=== PATIENT | male | born 1960 | race Caucasian/White ===

== ENCOUNTER 2017-03-22 22:10 | Observation (INO) | payer MEDICARE, OTHER ==
[~2017-03-22] VITALS: Ht 180.3 cm; Wt 82.5 kg
[~2017-03-22 22:10] MED LIST: AMIO200 PO; ATOR20TA42 PO; CLOP75 PO; ECOT81TA2 PO; FURO1TAB93 PO; HYDR-3533 PO; METO50TA PO; POTA20IN3 PO; RAMI2.5C29 PO; SPIR25 PO
[2017-03-22 22:18] VITALS: BP 105/63; PULSE 83; RESP 18; TEMP 98.2; O2SAT 97
[2017-03-22] MEDS ORDERED: SODIUM CHLOR 0.9% 1000 ML INJ 1,000 ML IV ONE ×2 (22:34→23:04)
[2017-03-22] MEDS ORDERED: SODIUM CHLORIDE 0.9% FLUSH 10 ML FLUSH IVF PRN (22:45)
[2017-03-22] MEDS ORDERED: SPIR25TA PO (22:47)
[2017-03-22] MEDS ORDERED: METO50TA PO (22:47)
[2017-03-22] MEDS ORDERED: RAMI2.5C PO (22:47)
[2017-03-22] MEDS ORDERED: AMIO200T PO (22:47)
[2017-03-22] MEDS ORDERED: PLAV75TA29 PO (22:56)
[2017-03-22] MEDS ORDERED: ALPR.25 PO ×2 (22:56)
[2017-03-22] MEDS ORDERED: ATOR20TA15 PO (22:57)
--- NOTE | 2017-03-22 22:57 | PD ---
HPI Chief Complaint: Diabetic Time Seen by Provider: 22:34 Travel History International Travel<30 days: No Contact w/Intl Traveler<30days: No Traveled to known affect area: No History of Present Illness HPI Patient 56-year-old male with a history of congestive heart failure unknown primary cause presents emergency department for evaluation of hyperglycemia. He is coming by his friend whom he told that he been having some numbness and tingling in his fingers as well as some weight loss over the past few months and some nondescript visual disturbances. On a hot and she took his blood sugar with her machine at home and had 2 readings in excess of 400. On arrival here his blood sugars in the 480s, he last ate approximately 2 hours prior to arrival. Denies any chest pain shortness breath abdominal pain nausea vomiting or diarrhea. States she is on Lasix was not noticed if he is pain more often. He has an appointment coming up with his primary care physician and had labs ordered. States she has no history of diabetes personally. PFSH Past Medical History Hx Anticoagulant Therapy: Yes (63) Arthritis: Yes Asthma: No Autoimmune Disease: No Blood Disorders: No Anxiety: Yes Depression: No Heart Rhythm Problems: Yes Cancer: No Cardiac Catheterization: Yes (X 3) Cardiovascular Problems: Yes (CHF STENTS) High Cholesterol: Yes Chemotherapy: No Chest Pain: Yes Congestive Heart Failure: Yes COPD: Yes Cerebrovascular Accident: No Diabetes: Yes (NOT DXD) Diminished Hearing: No Endocrine: No GERD: Yes Genitourinary: Yes Hiatal Hernia: No Hypertension: Yes Immune Disorder: No Kidney Stones: No Musculoskeletal: Yes Neurologic: No Psychiatric: No Reproductive: No Respiratory: Yes Immunizations Current: Yes Migraines: No Myocardial Infarction: Yes Radiation Therapy: No Renal Failure: No Seizures: No Sickle Cell Disease: No Sleep Apnea: Yes Thyroid Disease: No Ulcer: No PNEUMOCCOCAL Vaccine (Year): 2008 Past Surgical History Abdominal Surgery: Yes AICD: Yes Appendectomy: Yes Cardiac Surgery: Yes (DEFIB-[facility] JANUARY 2016) Ear Surgery: No Endocrine Surgery: No Eye Surgery: No Genitourinary Surgery: No Gynecologic Surgery: No Insulin Pump: No Joint Replacement: No Oral Surgery: Yes (SINUS SURGERY) Pacemaker: No Thoracic Surgery: No Other Surgery: Yes Social History Alcohol Use: No Tobacco Use: Yes (10/07 PPD) Substance Use: No Allergies-Medications (Allergen,Severity, Reaction): Coded Allergies: Morphine (Verified Adverse Reaction, Unknown, HEADRUSH, 03/22/17) Reported Meds & Prescriptions Reported Meds & Active Scripts Active Reported Atorvastatin (Atorvastatin Calcium) 20 Mg Tab 20 Mg PO HS Xanax (Alprazolam) 0.25 Mg Tab 0.25 Mg PO HS Plavix (Clopidogrel Bisulfate) 75 Mg Tab 75 Mg PO DAILY Metoprolol Tartrate 50 Mg Tab 50 Mg PO BID Spironolactone 25 Mg Tab 25 Mg PO DAILY Ramipril 2.5 Mg Cap 2.5 Mg PO DAILY Amiodarone (Amiodarone HCl) 200 Mg Tab 200 Mg PO DAILY Review of Systems Except as stated in HPI: all other systems reviewed are Neg Physical Exam Narrative GENERAL: Well-developed, well-nourished, no apparent distress, quite pleasant. Does exhibit an occasional dry cough. SKIN: Focused skin assessment warm/dry. HEAD: Atraumatic. Normocephalic. EYES: Pupils equal and round. No scleral icterus. No injection or drainage. ENT: No nasal bleeding or discharge. Mucous membranes pink and moist. NECK: Trachea midline. No JVD. CARDIOVASCULAR: Regular rate and rhythm. No murmur appreciated. RESPIRATORY: No accessory muscle use. Clear to auscultation. Breath sounds equal bilaterally. GASTROINTESTINAL: Abdomen soft, non-tender, nondistended. Hepatic and splenic margins not palpable. MUSCULOSKELETAL: No obvious deformities. No clubbing. No cyanosis. No edema. NEUROLOGICAL: Awake and alert. No obvious cranial nerve deficits. Motor grossly within normal limits. Normal speech. PSYCHIATRIC: Appropriate mood and affect; insight and judgment normal. Data Data Last Documented VS Vital Signs Date Time Temp Pulse Resp B/P Pulse Ox O2 Delivery O2 Flow Rate FiO2 03/22/17 23:30 79 18 110/68 100 Room Air 03/22/17 22:18 98.2 Orders Electrocardiogram (03/22/17 22:34) Complete Blood Count With Diff (03/22/17 22:34) Comprehensive Metabolic Panel (03/22/17 22:34) Beta Hydroxybutyrate (Acetone) (03/22/17 22:34) Urinalysis - C+S If Indicated (03/22/17 22:34) Ecg Monitoring (03/22/17 22:34) Iv Access Insert/Monitor (03/22/17 22:34) Oximetry (03/22/17 22:34) NPO (03/22/17 22:34) Sodium Chlor 0.9% 1000 Ml Inj (Ns 1000 M (03/22/17 22:34) Sodium Chlor 0.9% 1000 Ml Inj (Ns 1000 M (03/22/17 23:04) Sodium Chloride 0.9% Flush (Ns Flush) (03/22/17 22:45) Troponin I (03/22/17 22:34) Insulin Human Regular Inj (Novolin R Inj (03/22/17 23:15) Chest, Single Ap (03/22/17 ) Labs Laboratory Tests Test 03/22/17 23:00 White Blood Count 8.7 TH/MM3 Red Blood Count 4.91 MIL/MM3 Hemoglobin 15.4 GM/DL Hematocrit 45.7 % Mean Corpuscular Volume 93.2 FL Mean Corpuscular Hemoglobin 31.5 PG Mean Corpuscular Hemoglobin 33.8 % Concent Red Cell Distribution Width 12.2 % Platelet Count 180 TH/MM3 Mean Platelet Volume 8.3 FL Neutrophils (%) (Auto) 76.7 % Lymphocytes (%) (Auto) 14.7 % Monocytes (%) (Auto) 7.5 % Eosinophils (%) (Auto) 0.8 % Basophils (%) (Auto) 0.3 % Neutrophils # (Auto) 6.6 TH/MM3 Lymphocytes # (Auto) 1.3 TH/MM3 Monocytes # (Auto) 0.7 TH/MM3 Eosinophils # (Auto) 0.1 TH/MM3 Basophils # (Auto) 0.0 TH/MM3 CBC Comment DIFF FINAL Differential Comment Urine Color YELLOW Urine Turbidity CLEAR Urine pH 5.0 Urine Specific [place] 1.030 Urine Protein NEG mg/dL Urine Glucose (UA) 1000 OR GREATER mg/dL Urine Ketones NEG mg/dL Urine Occult Blood TRACE Urine Nitrite NEG Urine Bilirubin NEG Urine Leukocyte Esterase NEG Urine RBC 0-3 /hpf Urine WBC 0-2 /hpf Urine Squamous Epithelial 0-5 /hpf Cells Microscopic Urinalysis Comment CULT NOT INDICATED Sodium Level 135 MEQ/L Potassium Level 3.9 MEQ/L Chloride Level 98 MEQ/L Carbon Dioxide Level 25.4 MEQ/L Anion Gap 12 MEQ/L Blood Urea Nitrogen 20 MG/DL Creatinine 1.60 MG/DL Estimat Glomerular Filtration 45 ML/MIN Rate Random Glucose 498 MG/DL Calcium Level 8.5 MG/DL Total Bilirubin 0.5 MG/DL Aspartate Amino Transf 32 U/L (AST/SGOT) Alanine Aminotransferase 24 U/L (ALT/SGPT) Alkaline Phosphatase 140 U/L Troponin I 0.06 NG/ML Total Protein 6.6 GM/DL Albumin 3.5 GM/DL B-Hydroxybutyrate 0.31 MMOL/L MDM Medical Decision Making Medical Screen Exam Complete: Yes Emergency Medical Condition: Yes Interpretation(s) EKG shows sinus rhythm with left bundle branch block, no Sgarbossa's criteria. Comparison to 01/18/2015 shows no significant change. This is an abnormal EKG. Differential Diagnosis New onset diabetes, hyperglycemia, HHS is unlikely, DKA unlikely, elevated troponin, infection, pneumonia, chronic CHF. Narrative Course Patient was roomed in emergency department, quite pleasant in no apparent distress. Denies any chest pain or shortness of breath. Initially the plan was for 2 L normal saline, patient states that he has fairly severe congestive heart failure followed by Dr. Tran and therefore aggressive fluid resuscitation was halted. He received approximately 3 cc normal saline emergency department. Sugar is in excess of 490. Was given 5 units of regular insulin IV, repeat sugars and 350 range. Looking for secondary sources of new onset diabetes, basic labs were sent as well as troponin and troponin is minimally elevated to 0.06. Again patient has not had any chest pain and his EKG is no change from previous. Had an extensive conversation with the patient and given his creatinine of 1.6 and his troponin of 0.06 I am uneasy with discharging him at this time. Recommended him for observation status and he is agreeable. Patient will be discussed with Bob for observation status. Diagnosis Primary Impression: Diabetes mellitus, new onset Additional Impressions: Elevated troponin I level CHF (congestive heart failure) CHAVO (acute kidney injury) Admitting Information Admitting Physician Requests: Observation Condition: Stable Yayo Blount MD Mar 22, 2017 22:57
[2017-03-22 23:09] LABS: AUTOMATED NEUTROPHIL # 6.6 TH/MM3 (1.8-7.7); BASOPHIL % 0.3 % (0.0-2.0); EOSINOPHIL # 0.1 TH/MM3 (0-0.4); EOSINOPHIL % 0.8 % (0.0-4.0); HEMATOCRIT 45.7 % (39.0-51.0); HEMO FLAGS DIFF FINAL; LYMPH % 14.7 % (9.0-44.0); LYMPHOCYTE # 1.3 TH/MM3 (1.0-4.8); MEAN CELL VOLUME 93.2 FL (80.0-100.0); MEAN CORPUSCULAR HEMOGLOBIN 31.5 PG (27.0-34.0); MEAN CORPUSCULAR HGB CONC 33.8 % (32.0-36.0); MONO % 7.5 % (0.0-8.0); NEUT % 76.7 % (16.0-70.0); PLATELET COUNT 180 TH/MM3 (150-450); RED BLOOD COUNT 4.91 MIL/MM3 (4.50-5.90); RED CELL DISTRIBUTION WIDTH 12.2 % (11.6-17.2); WHITE BLOOD COUNT 8.7 TH/MM3 (4.0-11.0)
[2017-03-22 23:10] VITALS: BP 132/70; PULSE 82; RESP 18; O2SAT 98
[2017-03-22] MEDS ORDERED: INSULIN HUMAN REGULAR 1,000 UNITS/10 ML VIAL IV PUSH ONE (23:15)
[2017-03-22 23:17] LABS: BLOOD, URINE TRACE (NEG); KETONE, URINE NEG (NEG); NITRITE,URINE NEG (NEG)
[2017-03-22 23:27] LABS: GLUCOSE,URINE 1000 OR GREATER mg/dL (NEG)
[2017-03-22 23:28] LABS: URINE COLOR YELLOW (YELLW/STRAW)
[2017-03-22 23:29] LABS: CHLORIDE 98 MEQ/L (98-107); POTASSIUM 3.9 MEQ/L (3.5-5.1); SODIUM (NA) 135 MEQ/L (136-145)
[2017-03-22 23:30] VITALS: BP 110/68; PULSE 79; RESP 18; O2SAT 100
[2017-03-22 23:30] LABS: SQUAMOUS EPITHELIAL CELL URINE 0-5 /hpf (0-5); WBC, URINE 0-2 /hpf (0-5)
[2017-03-22 23:31] LABS: COMMENT (UR) CULT NOT INDICATED; CULTURE IF INDICATED CULT NOT INDICATED; RBC, URINE 0-3 /hpf (0-3)
[2017-03-22 23:33] LABS: ANION GAP 12 MEQ/L (5-15); BICARBONATE 25.4 MEQ/L (21.0-32.0)
--- NOTE | 2017-03-22 23:43 | RADHPO ---
EXAM DATE/TIME: 03/22/2017 23:19 [facility] COMPARISON: CHEST SINGLE AP, January 18, 2015, 19:50. INDICATIONS : Cough. MEDICAL HISTORY : Cardiovascular disease. SURGICAL HISTORY : Pacemaker. Cardiac catheterization. ENCOUNTER: Initial ACUITY: 1 day PAIN SCORE: 0/10 LOCATION: Bilateral chest FINDINGS: No infiltrate, effusion or pneumothorax demonstrated. There is slight cardiomegaly, actually appears improved. Cardiac pacer/defibrillator again noted. CONCLUSION: Mild compensated cardiomegaly. No acute cardiopulmonary disease demonstrated. Jean Carlos Augustin MD on March 22, 2017 at 23:41 Board Certified Radiologist. This report was verified electronically.
[2017-03-23] VITALS (9 sets, daily range): BP systolic 110–145; BP diastolic 64–90; PULSE 72–92; RESP 18–20; TEMP 95.5–100; O2SAT 93–98
[2017-03-23 00:07] LABS: ALKALINE PHOSPHATASE 140 U/L (45-117); ALT (GPT) 24 U/L (12-78); AST (GOT) 32 U/L (15-37); BETA-HYDROXYBUTYRATE 0.31 MMOL/L (0.00-0.39); BLOOD UREA NITROGEN 20 MG/DL (7-18); GLOMERULAR FILTRATION RATE 45 ML/MIN (>89); TOTAL BILIRUBIN ADULT 0.5 MG/DL (0.2-1.0)
[2017-03-23] MEDS ORDERED: SODIUM CHLORIDE 0.9% FLUSH 10 ML FLUSH IV FLUSH PRN (00:45)
[2017-03-23] MEDS ORDERED: DEXTROSE 50% IN WATER 50 ML VIAL(D50) IV PRN ×2 (00:45→11:15)
[2017-03-23] MEDS ORDERED: ASPIRIN 81 MG CHEW TAB CHEW ONE (00:45)
[2017-03-23] MEDS ORDERED: GLUCAGON 1 MG/ML VIAL OTHER PRN ×2 (00:45→11:15)
[2017-03-23] MEDS ORDERED: NALOXONE HCL 0.4 MG/ML AMP IV PRN (00:45)
[2017-03-23] MEDS ORDERED: ALPRAZolam 0.25 MG TAB PO ONE (02:00)
[2017-03-23] MEDS ORDERED: LORazepam 2 MG/ML VIAL IV PUSH ONE (02:15)
--- NOTE | 2017-03-23 07:25 | HHI.HP ---
[facility] Admission Diagnosis New onset diabetes, elevated Cr, Elevated Troponin Diagnoses: (1) Diabetes mellitus, new onset Diagnosis: Principal (2) Elevated troponin I level Diagnosis: Principal (3) Chronic systolic congestive heart failure Diagnosis: Secondary (4) Cardiomyopathy Diagnosis: Secondary (5) Chronic renal disease, stage III Diagnosis: Secondary Chief Complaint: Finger, toe numbness and tingling, elevated blood sugar Travel History International Travel<30 Days: No Contact w/Intl Traveler <30 Da: No Traveled to Known Affected Are: No History of Present Illness Written by Mohit Bailon, acting as scribe for Dr. Louie on 03/23/17 at 12: 18. 56 year-old male with known history of diabetes, hypertension, hyperlipidemia, coronary disease, atrial fibrillation, chronic kidney disease, chronic systolic congestive heart failure, gout, sleep apnea who presented to hospital for evaluation of elevated glucose. Patient indicates that he is had increased in numbness and tingling in his fingers and toes of the last 3 or 4 days. He was with a friend yesterday that has diabetes and they did check his sugar it was over 400. Because of that reason he came to the hospital for evaluation. Patient also indicates that he has had a 30 pound weight loss since the beginning of the year. Patient indicates that he has never been diagnosed with diabetes, however by review of medical records the patient has been treated for diabetes mellitus in the hospital on multiple admissions dating back to 2014. Patient indicates that he is not being treated for diabetes by his primary medical doctor. States the last time he had blood work was done by Dr. Tran about a year ago. Patient is anticipating him blood work done for follow-up appointment with his primary medical doctor. At the present time the patient does appear to be rather cantankerous. Does not really feel like participating in conversation. He is lying in bed with eyes closed and answering questions reluctantly. The patient denies any other symptoms other than paracentesis of his hands and toes, weight loss. Denies any chest pain, shortness of breath, dyspnea, abdominal pain, polydipsia, polyphagia. Patient also indicates that over the last 4 days he has developed a cold with sinus drainage, cough, congestion. Denies any fever, chills. Because of patient's uncontrolled diabetes is recommended patient be observed for further evaluation and management. Review of Systems Constitutional: COMPLAINS OF: Weight loss, DENIES: Diaphoretic episodes, Fatigue, Fever, Weight gain, Chills, Dizziness, Change in appetite, Night Sweats Endocrine: DENIES: Heat/cold intolerance, Polydipsia, Polyuria, Polyphagia Eyes: DENIES: Blurred vision, Diplopia, Eye inflammation, Eye pain, Vision loss , Photosensitivity, Double Vision Ears, nose, mouth, throat: COMPLAINS OF: Running Nose, DENIES: Hearing loss, Nasal discharge, Throat pain, Ear Pain, Sinus Pain Respiratory: COMPLAINS OF: Cough, DENIES: Apneas, Snoring, Wheezing, Hemoptysis, Sputum production, Shortness of breath Cardiovascular: DENIES: Chest pain, Palpitations, Syncope, Dyspnea on Exertion , Lower Extremity Edema, Orthopnea Gastrointestinal: DENIES: Abdominal pain, Black stools, Bloody stools, Constipation, Diarrhea, Nausea, Vomiting, Difficulty Swallowing, Anorexia Genitourinary: DENIES: Sexual dysfunction, Urinary frequency, Urinary incontinence, Urgency, Hematuria, Dysuria, Nocturia, Penile Discharge, Testicular Pain, Testicular Swelling Musculoskeletal: DENIES: Joint pain, Muscle aches, Stiffness, Joint Swelling, Back pain, Neck pain Integumentary: DENIES: Abnormal pigmentation, Nail changes, Pruritus, Rash Hematologic/lymphatic: DENIES: Bruising, Lymphadenopathy Immunologic/allergic: DENIES: Eczema, Urticaria Neurologic: COMPLAINS OF: Paresthesias, DENIES: Abnormal gait, Headache, Localized weakness, Seizures, Speech Problems, Tremor, Poor Balance Psychiatric: DENIES: Anxiety, Confusion, Mood changes, Depression, Hallucinations, Agitation, Suicidal Ideation, Homicidal Ideation, Delusions Past Family Social History Past Medical History Cardiomyopathy Chronic kidney disease Chronic systolic congestive heart failure History myocardial infarction Coronary artery disease Hypertension Hyperlipidemia Gout Obstructive sleep apnea History of atrial fibrillation Past Surgical History Cardiac catheterization with stenting AICD placement Left tibia/fibular repair Reported Medications Reported Meds & Active Scripts Active Reported Atorvastatin (Atorvastatin Calcium) 20 Mg Tab 20 Mg PO HS Xanax (Alprazolam) 0.25 Mg Tab 0.25 Mg PO HS Plavix (Clopidogrel Bisulfate) 75 Mg Tab 75 Mg PO HS Metoprolol Tartrate 50 Mg Tab 50 Mg PO BID Spironolactone 25 Mg Tab 25 Mg PO HS Ramipril 2.5 Mg Cap 2.5 Mg PO HS Amiodarone (Amiodarone HCl) 200 Mg Tab 200 Mg PO HS Allergies: Coded Allergies: Morphine (Verified Adverse Reaction, Unknown, HEADRUSH, 03/22/17) Family History Reviewed and significant for both mother and father with diabetes. Patient denies any history of heart disease, cancer, seizures, stroke Social History Patient smokes a half a pack a cigarettes a day and has been smoking since he was 18 years old. Denies any alcohol or illicit drugs Physical Exam Vital Signs Vital Signs Date Time Temp Pulse Resp B/P Pulse Ox O2 Delivery O2 Flow Rate FiO2 03/23/17 04:45 95.5 75 18 112/78 94 03/23/17 02:22 100.0 73 20 119/64 96 03/23/17 02:15 76 18 114/84 97 Room Air 03/23/17 01:31 72 20 112/67 96 Room Air 03/23/17 01:00 97 Room Air 03/23/17 00:45 74 18 125/67 95 Room Air 03/22/17 23:30 79 18 110/68 100 Room Air 03/22/17 23:10 82 18 132/70 98 Room Air 03/22/17 22:18 98.2 83 18 105/63 97 Physical Exam GENERAL: Well-developed, well-nourished, in no acute distress. alert and orientated HEENT: Head is normocephalic without any lesions or masses noted. Facial features are symmetric. Eyes: Pupils equal round reactive to light. Extraocular muscles are intact. Conjunctivae were clear. Oropharyngeal: Pharynx without any erythema edema. Tongue is midline without deviation. Buccal mucosa is moist without any masses or lesions NECK: Supple without any masses. Trachea midline no deviation. No JVD, no bruits are appreciated CARDIAC: Regular rhythm, regular rate. S1/S2 are heard. No murmurs gallops or rubs. LUNGS: Clear to auscultation bilaterally. No wheeze, rhonchi or rales. No use of accessory muscles on inspiration or expiration. ABDOMEN: Soft, nontender. Nondistended. Bowel sounds heard in all 4 quadrants. No organomegaly or masses. Negative rebound, negative guarding EXTREMITIES: No edema, pulses are equal bilaterally. No cyanosis or clubbing NEUROLOGY: Mood and affect appear appropriate. Cranial nerves II through XII grossly intact. Muscle strength 5/5 in upper and lower extremities bilaterally. Deep tendon reflexes are 2+ in upper and lower extremities bilaterally. Laboratory Laboratory Tests Test 03/22/17 03/23/17 23:00 05:10 White Blood Count 8.7 Red Blood Count 4.91 Hemoglobin 15.4 Hematocrit 45.7 Mean Corpuscular Volume 93.2 Mean Corpuscular Hemoglobin 31.5 Mean Corpuscular Hemoglobin 33.8 Concent Red Cell Distribution Width 12.2 Platelet Count 180 Mean Platelet Volume 8.3 Neutrophils (%) (Auto) 76.7 Lymphocytes (%) (Auto) 14.7 Monocytes (%) (Auto) 7.5 Eosinophils (%) (Auto) 0.8 Basophils (%) (Auto) 0.3 Neutrophils # (Auto) 6.6 Lymphocytes # (Auto) 1.3 Monocytes # (Auto) 0.7 Eosinophils # (Auto) 0.1 Basophils # (Auto) 0.0 CBC Comment DIFF FINAL Differential Comment Urine Color YELLOW Urine Turbidity CLEAR Urine pH 5.0 Urine Specific [place] 1.030 Urine Protein NEG Urine Glucose (UA) 1000 OR GREATER Urine Ketones NEG Urine Occult Blood TRACE Urine Nitrite NEG Urine Bilirubin NEG Urine Leukocyte Esterase NEG Urine RBC 0-3 Urine WBC 0-2 Urine Squamous Epithelial 0-5 Cells Microscopic Urinalysis Comment CULT NOT INDICATED Sodium Level 135 Potassium Level 3.9 Chloride Level 98 Carbon Dioxide Level 25.4 Anion Gap 12 Blood Urea Nitrogen 20 Creatinine 1.60 Estimat Glomerular Filtration 45 Rate Random Glucose 498 Calcium Level 8.5 Total Bilirubin 0.5 Aspartate Amino Transf 32 (AST/SGOT) Alanine Aminotransferase 24 (ALT/SGPT) Alkaline Phosphatase 140 Troponin I 0.06 0.06 Total Protein 6.6 Albumin 3.5 B-Hydroxybutyrate 0.31 Total Creatine Kinase 125 Result Diagram: 03/22/17229903/22/172299 Imaging Last Impressions Chest X-Ray 03/22/17 0000 Signed Impressions: Service Date/Time: Wednesday, March 22, 2017 23:19 - CONCLUSION: Mild compensated cardiomegaly. No acute cardiopulmonary disease demonstrated. Jean Carlos Augustin MD Assessment and Plan Problem List: (1) Uncontrolled diabetes mellitus ICD Code: E11.65 Status: Acute (2) Elevated troponin I level ICD Code: R74.8 Status: Acute Assessment and Plan Diabetes, uncontrolled, untreated Review medical records does indicate patient has been treated for diabetes in the past, however patient denies formal diagnosis is not being treated by his primary medical doctor at this time Hemoglobin A1c has been ordered to determine treatment plan Continue Accu-Cheks with sliding scale insulin We'll obtain diabetic education, dietary education Equivocal troponin elevation Patient denies any active chest pain or symptoms, likely secondary to congestive heart failure, chronic kidney disease Continue monitor for any active symptoms Upper respiratory infection Patient requesting treatment for cough, congestion, rhinorrhea Start Z-Jonas Robitussin-DM as needed Chronic kidney disease stage III Continue monitor renal function Avoid nephrotoxic drugs Hypertension, hyperlipidemia, coronary artery disease Continue home medications DVT prevention Lovenox This note was transcribed by kenneth Bailon. I, Dr. Andriy Louie personally performed the history, physical exam, and medical decision making; and confirmed the accuracy of the information in the transcribed note. Authenticated by Dr. Andriy Louie on 03/23/17 at 12:19. Code Status Full code Discussed Condition With Patient Problem Qualifiers (1) Cardiomyopathy: Qualified Code: I42.9 - Cardiomyopathy, unspecified type Mohit Bailon Mar 23, 2017 07:25 Andriy Louie MD Mar 23, 2017 07:25
[2017-03-23] MEDS: METOPROLOL TARTRATE 50 MG TAB PO SCH ×2 (08:28→21:07)
[2017-03-23] MEDS: SODIUM CHLORIDE 0.9% FLUSH 10 ML FLUSH IV FLUSH SCH ×2 (08:31→21:08)
[2017-03-23] MEDS: INSULIN ASPART SUPPLEMENTAL SCALE SQ SCH ×5 (08:31→21:13)
[2017-03-23] MEDS: ENOXAPARIN SODIUM 30 MG/0.3 ML SYRINGE SQ SCH ×2 (11:00→11:53)
[2017-03-23] MEDS: guaiFENesin/DEXTROMETHORPHAN 200 MG/20 MG/10 ML CUP PO PRN (11:49)
[2017-03-23] MEDS: AZITHROMYCIN 250 MG TAB PO SCH (11:49)
[2017-03-23 12:16] LABS: HDL CHOLESTEROL 28.3 MG/DL (40.0-60.0); LDL CHOLESTEROL 117 MG/DL (0-99)
[2017-03-23 16:12] LABS: HEMOGLOBIN A1a 1.3 %; HEMOGLOBIN Ao 67.5 %; HEMOGLOBIN F 4.3 %; HEMOGLOBIN LA1C 3.5 %; HEMOGLOBIN P3 5.8 %
--- NOTE | 2017-03-23 16:56 | EKG ---
Date Performed: 03/22/2017 Time Performed: 22:51:51 PTAGE: 56 years EKG: Sinus rhythm INTRAVENTRICULAR CONDUCTION DELAY ABNORMAL ECG PREVIOUS TRACING 01/18/2015 19.20.00 Since previous tracing, no significant change noted DOCTOR: Jennifer Stewart Interpretating Date/Time 03/23/2017 16:52:30
--- NOTE | 2017-03-23 16:57 | EKG ---
Date Performed: 03/23/2017 Time Performed: 05:06:34 PTAGE: 56 years EKG: NORMAL Sinus rhythm INTERVENTRICULAR CONDUCTION DELAY ABNORMAL ECG PREVIOUS TRACING : 01/18/2015 19.20 Since previous tracing, no significant change noted DOCTOR: Jennifer Stewart Interpretating Date/Time 03/23/2017 16:53:15
--- NOTE | 2017-03-23 17:08 | EKG ---
Date Performed: 03/23/2017 Time Performed: 10:52:37 PTAGE: 56 years EKG: Sinus rhythm LEFT AXIS DEVIATION LEFT BUNDLE BRANCH BLOCK ABNORMAL ECG PREVIOUS TRACING : 03/23/2017 05.06 No significant change from previous tracing noted. DOCTOR: Julio Dixon Interpretating Date/Time 03/23/2017 17:06:15
[2017-03-23] MEDS ORDERED: ZOLPIDEM TARTRATE 5 MG TAB PO PRN (19:45)
[2017-03-23] MEDS ORDERED: ACETAMINOPHEN 325 MG TAB PO PRN (19:45)
[2017-03-23] MEDS ORDERED: DOCUSATE SODIUM 50 MG/SENNA 8.6 MG TAB PO PRN (19:45)
[2017-03-23] MEDS ORDERED: ONDANSETRON HCL 4 MG/2 ML VIAL IV PRN (19:45)
[2017-03-23] MEDS ORDERED: AMIODARONE 200 MG TAB PO SCH (21:00)
[2017-03-23] MEDS ORDERED: RAMIPRIL 2.5 MG CAP PO SCH (21:00)
[2017-03-23] MEDS ORDERED: CLOPIDOGREL 75 MG TAB PO SCH (21:00)
[2017-03-23] MEDS ORDERED: ATORVASTATIN 20 MG TAB PO SCH (21:00)
[2017-03-23] MEDS ORDERED: ALPRAZolam 0.25 MG TAB PO SCH (21:00)
[2017-03-23] MEDS ORDERED: SPIRONOLACTONE 25 MG TAB PO SCH (21:00)
[2017-03-23] MEDS ORDERED: INSULIN DETEMIR 100 UNITS/ML VIAL SQ SCH (21:00)
[2017-03-24] VITALS: BP 126/77; PULSE 88; RESP 24; TEMP 97.5; O2SAT 96
[2017-03-24] MEDS ORDERED: LORazepam 2 MG/ML VIAL IV PUSH ONE (02:15)
[2017-03-24 08:00] VITALS: BP 124/79; PULSE 91; RESP 20; TEMP 98.1; O2SAT 95
--- NOTE | 2017-03-24 08:48 | HHI.DS ---
Discharge Summary Admission Date Mar 23, 2017 at 00:45 Discharge Date: Mar 24, 2017 Admitting Diagnosis New onset diabetes, elevated Cr, Elevated Troponin (1) Uncontrolled diabetes mellitus ICD Code: E11.65 (2) Elevated troponin I level ICD Code: R74.8 Procedures None Brief History - From Admission Written by Mohit Bailon, acting as scribe for Dr. Louie on 03/23/17 at 12: 18. 56 year-old male with known history of diabetes, hypertension, hyperlipidemia, coronary disease, atrial fibrillation, chronic kidney disease, chronic systolic congestive heart failure, gout, sleep apnea who presented to hospital for evaluation of elevated glucose. Patient indicates that he is had increased in numbness and tingling in his fingers and toes of the last 3 or 4 days. He was with a friend yesterday that has diabetes and they did check his sugar it was over 400. Because of that reason he came to the hospital for evaluation. Patient also indicates that he has had a 30 pound weight loss since the beginning of the year. Patient indicates that he has never been diagnosed with diabetes, however by review of medical records the patient has been treated for diabetes mellitus in the hospital on multiple admissions dating back to 2014. Patient indicates that he is not being treated for diabetes by his primary medical doctor. States the last time he had blood work was done by Dr. Tran about a year ago. Patient is anticipating him blood work done for follow-up appointment with his primary medical doctor. At the present time the patient does appear to be rather cantankerous. Does not really feel like participating in conversation. He is lying in bed with eyes closed and answering questions reluctantly. The patient denies any other symptoms other than paracentesis of his hands and toes, weight loss. Denies any chest pain, shortness of breath, dyspnea, abdominal pain, polydipsia, polyphagia. Patient also indicates that over the last 4 days he has developed a cold with sinus drainage, cough, congestion. Denies any fever, chills. Because of patient's uncontrolled diabetes is recommended patient be observed for further evaluation and management. CBC/BMP: 03/22/17 2300 03/22/17 230 Significant Findings Laboratory Tests Test 03/22/17 03/23/17 23:00 05:10 Neutrophils (%) (Auto) 76.7 % (16.0-70.0) Urine Glucose (UA) 1000 OR GREATER mg/dL (NEG) Urine Occult Blood TRACE (NEG) Sodium Level 135 MEQ/L (136-145) Blood Urea Nitrogen 20 MG/DL (7-18) Creatinine 1.60 MG/DL (0.60-1.30) Estimat Glomerular Filtration 45 ML/MIN (>89) Rate Random Glucose 498 MG/DL (74-106) Alkaline Phosphatase 140 U/L (45-117) Troponin I 0.06 NG/ML 0.06 NG/ML (0.02-0.05) (0.02-0.05) Hemoglobin A1c 18.3 % (4.3-6.0) B-Type Natriuretic Peptide 137 PG/ML (0-100) Triglycerides Level 237 MG/DL (42-150) LDL Cholesterol 117 MG/DL (0-99) HDL Cholesterol 28.3 MG/DL (40.0-60.0) Imaging Last Impressions Chest X-Ray 03/22/17 0000 Signed Impressions: Service Date/Time: Wednesday, March 22, 2017 23:19 - CONCLUSION: Mild compensated cardiomegaly. No acute cardiopulmonary disease demonstrated. Jean Carlos Augustin MD Hospital Course 56-year-old male who rated presented to hospital because of numbness and tingling in hands and elevated blood glucose. Patient was found to have glucose level 498 with hemoglobin A1c of 18.3. Upon review medical records it does appear that patient has had. His diagnosis of diabetes which date back to 2011, however patient family states that he has never been diagnosed with diabetes. Previous chemotherapy and A1c 6.8, 6.4 and now 18.3. Patient was counseled extensively on his history of diabetes and need for management at this time. Patient had workup done in the hospital with staff educator. He was started on Levemir insulin as well as sliding scale insulin. Blood glucose is much improved at this time. Patient is very eager to be discharged. Patient did have equivocal troponin is well in which he does have history of heart disease, congestive heart failure, chronic kidney disease in which the patient states that he does not have any problems with his kidneys. However does appear to medical record review that he does have chronic kidney disease stage III. Patient denied any active chest pain symptoms. Patient clinically stable this time. Patient has been counseled extensively on diabetes, patient was notified to follow-up with primary medical doctor for continued management of his diabetes for endocrinology referral for management. Pt Condition on Discharge: Stable Discharge Disposition: Discharge Home Discharge Time: > 30 minutes Discharge Instructions DIET: Follow Instructions for: Diabetic Diet Activities you can perform: Regular-No Restrictions Activities to Avoid: Driving for 24 hrs Follow up Referrals: PCP Follow-up - 1 Week New Medications: Blood Glucose Monitoring W/Device (Glucocom Blood Glucose Mo W/Device) 1 Kit Kit 1 KIT .ROUTE DIRECTED Blood Sugar Management #1 KIT Glucocom Test Strips (Glucocom Test Strips) 1 Ivory Ivory 1 EA .ROUTE DIRECTED Blood Sugar Management #1 BOX Insulin Aspart Inj (Novolog Flexpen Inj) 300 Unit/3 Ml Pen 1 UNITS SQ ACHS Sliding Scale Insulin Blood Glucose Novolog Insilin Less than 70 No Insulin 150-199 1 unit 200-249 3 units 250-299 5 units 300-349 7 units Greater than 349 9 units and call physician PRN Diabetes management Days 30 Ref 0 PEN Insulin Detemir Inj (Levemir Flextouch Pen Inj) 300 unit/3 ML Pen 10 UNITS SQ HS Blood Sugar Management Days 30 Ref 0 PEN Lancets (Lancets) 1 Mis Mis 1 EA .ROUTE DIRECTED Blood Sugar Management #1 Ref 0 BOX Continued Medications: Alprazolam (Xanax) 0.25 Mg Tab 0.25 MG PO HS ANXIETY Ref 0 TAB Amiodarone (Amiodarone) 200 Mg Tab 200 MG PO HS Regulate Heart Beat #30 Ref 0 TAB Atorvastatin (Atorvastatin) 20 Mg Tab 20 MG PO HS Cholesterol Management #30 Ref 0 TAB Clopidogrel (Plavix) 75 Mg Tab 75 MG PO HS Blood Clot Prevention #30 Ref 0 TAB Metoprolol Tartrate (Metoprolol Tartrate) 50 Mg Tab 50 MG PO BID #60 Ref 0 TAB Ramipril (Ramipril) 2.5 Mg Cap 2.5 MG PO HS #30 Ref 0 CAP Spironolactone (Spironolactone) 25 Mg Tab 25 MG PO HS #30 Ref 0 TAB Additional Information Written by Mohit Bailon, acting as scribe for Dr. Louie on 03/24/17 at 09: 05. This note was transcribed by kenneth Bailon. I, Dr. Andriy Louie personally performed the history, physical exam, and medical decision making; and confirmed the accuracy of the information in the transcribed note. Authenticated by Dr. Andriy Louie on 03/24/17 at 02:05. Mohit Bailon Mar 24, 2017 08:48 Andriy Louie MD Mar 24, 2017 09:04
[2017-03-24] MEDS ORDERED: NOVOINJ3 SQ ×2 (09:04→09:11)
[2017-03-24] MEDS ORDERED: INSU1INJ5 SQ (09:04)
[2017-03-24] MEDS ORDERED: GLUCTES12 (09:04)
[2017-03-24] MEDS ORDERED: LANCETS1 MI1 (09:04)
[2017-03-24] MEDS ORDERED: GLUCKIT15 (09:04)
[2017-03-24] MEDS ORDERED: AZIT250T3 PO (09:13)
--- NOTE | 2017-03-24 09:31 | HHI.PR ---
Subjective Remarks Follow-up untreated diabetes type 2 03/24/17-patient seen and examined, hemoglobin A1c 18.3 and patient denies having received prior diagnosis of diabetes type 2. He was started on Levemir 10 units at bedtime. No acute event overnight Objective Vitals Vital Signs Date Time Temp Pulse Resp B/P Pulse Ox O2 Delivery O2 Flow Rate FiO2 03/24/17 00:00 97.5 88 24 126/77 96 03/23/17 20:00 98.9 92 20 120/86 93 03/23/17 16:42 98.7 78 19 145/89 98 03/23/17 12:24 98.6 75 19 142/88 95 I/O 03/23/17 03/23/17 03/23/17 03/24/17 03/24/17 03/24/17 07:00 15:00 23:00 07:00 15:00 23:00 Intake Total 580 ml Output Total 300 ml Balance -300 ml 580 ml Intake Oral 580 ml Output Urine Total 300 ml # Voids 1 2 # Bowel Movements 0 Result Diagram: 03/22/17 2300 03/22/17 2300 Imaging Last Impressions Chest X-Ray 03/22/17 0000 Signed Impressions: Service Date/Time: Wednesday, March 22, 2017 23:19 - CONCLUSION: Mild compensated cardiomegaly. No acute cardiopulmonary disease demonstrated. Jean Carlos Augustin MD Objective Remarks GENERAL: NAD SKIN: Warm and dry. HEAD: Normocephalic. EYES: No scleral icterus. No injection or drainage. NECK: Supple, trachea midline. No JVD or lymphadenopathy. CARDIOVASCULAR: Regular rate and rhythm without murmurs, gallops, or rubs. RESPIRATORY: Breath sounds equal bilaterally. No accessory muscle use. GASTROINTESTINAL: Abdomen soft, non-tender, nondistended. MUSCULOSKELETAL: No cyanosis, or edema. BACK: Nontender without obvious deformity. No CVA tenderness. Procedures None A/P Problem List: (1) Uncontrolled diabetes mellitus ICD Code: E11.65 Status: Acute (2) Elevated troponin I level ICD Code: R74.8 Status: Acute (3) Chronic renal disease, stage III ICD Code: N18.3 Status: Acute (4) Chronic systolic congestive heart failure ICD Code: I50.22 Status: Acute (5) URI (upper respiratory infection) ICD Code: J06.9 Status: Acute Assessment and Plan 56-year-old man with Diabetes, uncontrolled, untreated Started on Levemir 10 units at bedtime Hemoglobin A1c 18.3 therefore patient will need outpatient follow-up with Endocrinology Continue Accu-Cheks with sliding scale insulin Appreciate input from diabetic education, dietary education I had an extensive discussion with patient about his current diagnosis, prognosis, treatment of care. Patient was advised about compliance Equivocal troponin elevation Patient denies any active chest pain or symptoms, likely secondary to congestive heart failure, chronic kidney disease Continue monitor for any active symptoms Upper respiratory infection Continue with Z-Jonas Robitussin-DM as needed Chronic kidney disease stage III Continue monitor renal function Avoid nephrotoxic drugs Hypertension, hyperlipidemia, coronary artery disease Continue home medications LDL 117 DVT prevention Andriy Andre MD Mar 24, 2017 09:31
[2017-03-24] MEDS: guaiFENesin/DEXTROMETHORPHAN 200 MG/20 MG/10 ML CUP PO PRN (10:09)
[2017-03-24] MEDS: AZITHROMYCIN 250 MG TAB PO SCH (10:09)
[2017-03-24] MEDS: SODIUM CHLORIDE 0.9% FLUSH 10 ML FLUSH IV FLUSH SCH (10:10)
[2017-03-24] MEDS: METOPROLOL TARTRATE 50 MG TAB PO SCH (10:10)
[2017-03-24] MEDS: INSULIN ASPART SUPPLEMENTAL SCALE SQ SCH (10:15)
== END 2017-03-24 10:55 | disposition home or self-care (01) ==
LOC: PHED 22:10 → PHEDA 03-23 00:45 → PH3A 03-23 02:29
PROVIDERS: ADMIT Hospitalist; ATTEND Hospitalist
DX: E11.65 Type 2 diabetes mellitus with hyperglycemia (principal); E11.22 Type 2 diabetes mellitus with diabetic chronic kidney disease; I13.0 Hypertensive heart and chronic kidney disease with heart failure and stage 1 through stage 4 chronic kidney disease, or unspecified chronic kidney disease; N18.3 Chronic kidney disease, stage 3 (moderate); I50.22 Chronic systolic (congestive) heart failure; R74.8 Abnormal levels of other serum enzymes; I25.10 Atherosclerotic heart disease of native coronary artery without angina pectoris; I48.91 Unspecified atrial fibrillation; J06.9 Acute upper respiratory infection, unspecified; I25.2 Old myocardial infarction; E78.5 Hyperlipidemia, unspecified; F17.210 Nicotine dependence, cigarettes, uncomplicated; Z95.810 Presence of automatic (implantable) cardiac defibrillator; G47.33 Obstructive sleep apnea (adult) (pediatric); Z79.02 Long term (current) use of antithrombotics/antiplatelets; Z88.5 Allergy status to narcotic agent
CPT/HCPCS: 71010; 80053; 80061; 81001; 82010; 82550; 82948; 83036; 83880; 84484; 85025; 93005; 96361; 96374; 99285; G0378; J1650; J1815; J2060; J7030

== ENCOUNTER 2017-10-27 10:37 | Inpatient (IN) | payer MEDICARE, OTHER ==
[2017-10-27] VITALS (16 sets, daily range): BP systolic 106–134; BP diastolic 54–83; PULSE 83–107; RESP 22–25; TEMP 98.6–100.8; O2SAT 93–95
[~2017-10-27] VITALS: Ht 180.3 cm; Wt 90.8 kg
[~2017-10-27 10:37] MED LIST changes: +ALPR.25 PO; -AMIO200 PO; +AMIO200T PO; +ATOR20TA15 PO; -ATOR20TA42 PO; +AZIT250T3 PO; -CLOP75 PO; -ECOT81TA2 PO; -FURO1TAB93 PO; +GLUCKIT15; +GLUCTES12; -HYDR-3533 PO; +INSU1INJ5 SQ; +LANCETS1 MI1; +NOVOINJ3 SQ; +PLAV75TA29 PO; -POTA20IN3 PO; +RAMI2.5C PO; -RAMI2.5C29 PO; -SPIR25 PO; +SPIR25TA PO
[2017-10-27] MEDS ORDERED: SODIUM CHLORIDE 0.9% FLUSH 10 ML FLUSH IVF PRN (11:15)
[2017-10-27] MEDS ORDERED: LORazepam 1 MG TAB PO ONE (11:30)
[2017-10-27] MEDS ORDERED: HYDROcodone 5 MG/HOMATROPINE 1.5 MG SYRUP 5 ML CUP PO ONE (11:30)
[2017-10-27] MEDS ORDERED: RESP: ALBUTEROL 2.5 MG/IPRATROPIUM 0.5 MG NEB (SCH) NEB ONE (11:30)
[2017-10-27] MEDS ORDERED: guaiFENesin E.R. 600 MG TAB PO ONE (11:30)
[2017-10-27 11:42] LABS: AUTOMATED NEUTROPHIL # 9.7 TH/MM3 (1.8-7.7); BASOPHIL % 0.1 % (0.0-2.0); HEMATOCRIT 44.1 % (39.0-51.0); HEMOGLOBIN 15.5 GM/DL (13.0-17.0); LYMPH % 7.1 % (9.0-44.0); LYMPHOCYTE # 0.8 TH/MM3 (1.0-4.8); MEAN CORPUSCULAR HGB CONC 35.1 % (32.0-36.0); MEAN PLATELET VOLUME 8.8 FL (7.0-11.0); MONO % 7.8 % (0.0-8.0); MONOCYTE # 0.9 TH/MM3 (0-0.9); PLATELET COUNT 196 TH/MM3 (150-450); RED CELL DISTRIBUTION WIDTH 14.5 % (11.6-17.2); WHITE BLOOD COUNT 11.4 TH/MM3 (4.0-11.0)
--- NOTE | 2017-10-27 11:43 | RADRPT ---
EXAM DATE/TIME: 10/27/2017 11:34 [facility] COMPARISON: CHEST SINGLE AP, March 22, 2017, 23:19. INDICATIONS : Short of breath. MEDICAL HISTORY : Congestive heart failure. Myocardial infarction. SURGICAL HISTORY : Defibrillator, 3 stents ENCOUNTER: Initial ACUITY: 1 month PAIN SCORE: 0/10 LOCATION: Bilateral chest FINDINGS: Cardiac silhouette is enlarged with mild indistinct central pulmonary vasculature. Mild diffuse inter stitial prominence. Minimal bibasilar airspace disease. stable dual-lead AICD device in place. Remain aaron the exam is unchanged. CONCLUSION: 1. Cardiomegaly with mild positive fluid balance. 2. Mild bibasilar airspace disease, likely atelectasis. Keith Zavala MD on October 27, 2017 at 11:40 Board Certified Radiologist. This report was verified electronically.
[2017-10-27 11:52] LABS: PROTHROMBIN TIME - PATIENT 10.4 SEC (9.8-11.6)
[2017-10-27 11:54] LABS: ALBUMIN 3.1 GM/DL (3.4-5.0); AST (GOT) 40 U/L (15-37); BICARBONATE 27.5 MEQ/L (21.0-32.0); BLOOD UREA NITROGEN 38 MG/DL (7-18); CALCIUM 9.2 MG/DL (8.5-10.1); CHLORIDE 93 MEQ/L (98-107); CREATININE 1.99 MG/DL (0.60-1.30); GLOMERULAR FILTRATION RATE 35 ML/MIN (>89); GLUCOSE,RANDOM 251 MG/DL (74-106); LIPASE 337 U/L (73-393); SODIUM (NA) 129 MEQ/L (136-145)
[2017-10-27 11:55] LABS: ALT (GPT) 21 U/L (12-78)
--- NOTE | 2017-10-27 11:55 | PD ---
HPI Chief Complaint: Chest Pain Time Seen by Provider: 11:04 Travel History International Travel<30 days: No Contact w/Intl Traveler<30days: No Traveled to known affect area: No History of Present Illness HPI 57-year-old man who presents emergency department complaining of feeling chest pain he describes as feeling like a heart racing fast feeling ongoing over the past month or so. Feeling last about 3-5 seconds, and occurs every 10-15 seconds. States it's worse at night. He states it feels similar to when he had his previous heart attack. Review of his previous records shows that he has a history of nonsustained VT and non-ST elevation [place] some time ago. He does have a [place] AICD that was placed. He's been a little bit sick with URI symptoms. Denies any fever has also had a little bit of fever and diarrhea with that. Follows with Dr. Cerrato in the cardiology. Is otherwise been doing well. History Past Medical History Narrative Medical Diabetes Cardio myopathy/CHF Chronic kidney disease Hypertension on hyperlipidemia A. fib CAD History of nonsustained V. tach, status post AICD PNEUMOCCOCAL Vaccine (Year): 2008 Social History Alcohol Use: No Tobacco Use: Yes (2 PPD) Allergies-Medications (Allergen,Severity, Reaction): Coded Allergies: morphine (Unverified Adverse Reaction, Unknown, HEADRUSH, 10/27/17) Reported Meds & Prescriptions Reported Meds & Active Scripts Active Azithromycin 250 Mg Tab 500 Mg PO DAILY 4 Days Novolog Flexpen Inj (Insulin Aspart) 300 Unit/3 Ml Pen 1 Units SQ ACHS PRN 30 Days Less than 70 No Insulin 150-199 1 unit 200-249 3 units 250-299 5 units 300-349 7 units Greater than 349 9 units and call physician Glucocom Test Strips (Blood Glucose Test Strips) 1 Ivory Ivory 1 Ea .ROUTE DIRECTED Lancets 1 Mis Mis 1 Ea .ROUTE DIRECTED Glucocom Blood Glucose Mo W/Device (Device) 1 Kit Kit 1 Kit .ROUTE DIRECTED Levemir Flextouch Pen Inj (Insulin Detemir) 300 unit/3 ML Pen 10 Units SQ HS 30 Days Reported Atorvastatin (Atorvastatin Calcium) 20 Mg Tab 20 Mg PO HS Xanax (Alprazolam) 0.25 Mg Tab 0.25 Mg PO HS Plavix (Clopidogrel Bisulfate) 75 Mg Tab 75 Mg PO HS Metoprolol Tartrate 50 Mg Tab 50 Mg PO BID Spironolactone 25 Mg Tab 25 Mg PO HS Ramipril 2.5 Mg Cap 2.5 Mg PO HS Amiodarone (Amiodarone HCl) 200 Mg Tab 200 Mg PO HS Review of Systems Except as stated in HPI: all other systems reviewed are Neg Physical Exam Narrative GENERAL: 57-year-old man, Jeri well-appearing, no acute distress. A little bit anxious. SKIN: Focused skin assessment warm/dry. HEAD: Atraumatic. Normocephalic. EYES: Pupils equal and round. No scleral icterus. No injection or drainage. ENT: No nasal bleeding or discharge. Mucous membranes pink and moist. NECK: Trachea midline. No JVD. CARDIOVASCULAR: Regular rate and rhythm. No murmur appreciated. RESPIRATORY: No accessory muscle use. Clear to auscultation. Breath sounds equal bilaterally. GASTROINTESTINAL: Abdomen soft, non-tender, nondistended. Hepatic and splenic margins not palpable. MUSCULOSKELETAL: No obvious deformities. No clubbing. No cyanosis. No edema. NEUROLOGICAL: Awake and alert. No obvious cranial nerve deficits. Motor grossly within normal limits. Normal speech. PSYCHIATRIC: Appropriate mood and affect; insight and judgment normal. Data Data Last Documented VS Vital Signs Date Time Temp Pulse Resp B/P (MAP) Pulse Ox O2 Delivery O2 Flow Rate FiO2 10/27/17 11:30 101 24 118/67 (84) 94 Nasal Cannula 2.00 10/27/17 10:38 100.8 Orders Orders Electrocardiogram (10/27/17 11:12) Complete Blood Count With Diff (10/27/17 11:12) Comprehensive Metabolic Panel (10/27/17 11:12) Magnesium (Mg) (10/27/17 11:12) Prothrombin Time / Inr (Pt) (10/27/17 11:12) Act Partial Throm Time (Ptt) (10/27/17 11:12) Troponin I (10/27/17 11:12) Lipase (10/27/17 11:12) Chest, Single Ap (10/27/17 11:12) Ecg Monitoring (10/27/17 11:12) Iv Access Insert/Monitor (10/27/17 11:12) Oximetry (10/27/17 11:12) Oxygen Administration (10/27/17 11:12) Sodium Chloride 0.9% Flush (Ns Flush) (10/27/17 11:15) Albuterol-Ipratropium Neb (Duoneb Neb) (10/27/17 11:30) Hydrocodone-Homatropine Liq (Hycodan Liq (10/27/17 11:30) Lorazepam (Ativan) (10/27/17 11:30) Guaifenesin Er (Mucinex Er) (10/27/17 11:30) Insulin Aspart Inj (Novolog Inj) (10/27/17 14:15) Aspirin Chew (Aspirin Chew) (10/27/17 14:15) Heparin Inj (Heparin Inj) (10/27/17 14:15) Heparin Inj (Heparin Inj) (10/27/17 20:15) Heparin Inj (Heparin Inj) (10/27/17 20:15) Heparin-D5w 25,000 U/250 Ml (Heparin-D5w (10/27/17 14:15) Act Partial Throm Time (Ptt) (10/27/17 14:04) Cbc No Diff, Includes Plts (10/27/17 14:04) Cbc No Diff, Includes Plts (10/30/17 06:00) Act Partial Throm Time (Ptt) (10/27/17 21:04) Occult Blood (Hemoccult) Stool (10/27/17 14:04) Admit Order (Ed Use Only) (10/27/17 ) Labs Laboratory Tests Test 10/27/17 11:15 White Blood Count 11.4 TH/MM3 Red Blood Count 4.70 MIL/MM3 Hemoglobin 15.5 GM/DL Hematocrit 44.1 % Mean Corpuscular Volume 94.0 FL Mean Corpuscular Hemoglobin 33.0 PG Mean Corpuscular Hemoglobin Concent 35.1 % Red Cell Distribution Width 14.5 % Platelet Count 196 TH/MM3 Mean Platelet Volume 8.8 FL Neutrophils (%) (Auto) 85.0 % Lymphocytes (%) (Auto) 7.1 % Monocytes (%) (Auto) 7.8 % Eosinophils (%) (Auto) 0.0 % Basophils (%) (Auto) 0.1 % Neutrophils # (Auto) 9.7 TH/MM3 Lymphocytes # (Auto) 0.8 TH/MM3 Monocytes # (Auto) 0.9 TH/MM3 Eosinophils # (Auto) 0.0 TH/MM3 Basophils # (Auto) 0.0 TH/MM3 CBC Comment DIFF FINAL Differential Comment Prothrombin Time 10.4 SEC Prothromb Time International Ratio 1.0 RATIO Activated Partial Thromboplast Time 34.1 SEC Blood Urea Nitrogen 38 MG/DL Creatinine 1.99 MG/DL Random Glucose 251 MG/DL Total Protein 7.0 GM/DL Albumin 3.1 GM/DL Calcium Level 9.2 MG/DL Magnesium Level 2.0 MG/DL Alkaline Phosphatase 93 U/L Aspartate Amino Transf (AST/SGOT) 40 U/L Alanine Aminotransferase (ALT/SGPT) 21 U/L Total Bilirubin 0.9 MG/DL Sodium Level 129 MEQ/L Potassium Level 4.6 MEQ/L Chloride Level 93 MEQ/L Carbon Dioxide Level 27.5 MEQ/L Anion Gap 9 MEQ/L Estimat Glomerular Filtration Rate 35 ML/MIN Troponin I 0.41 NG/ML Lipase 337 U/L [facility] Medical Decision Making Medical Screen Exam Complete: Yes Emergency Medical Condition: Yes Interpretation(s) My review of EKG: Normal sinus rhythm at a rate of 93, left bundle-branch block , no definite evidence of acute ischemia or arrhythmia. LABS: CBC unremarkable. CMP remarkable for mildly elevated BUN and creatinine, glucose 251 Troponin 0.41 Lipase normal Coags unremarkable. Chest x-ray: Cardiomegaly and mild positive fluid balance. Mild bibasilar airspace disease, likely atelectasis. Differential Diagnosis Palpitations, arrhythmia, anxiety, cough, URI, ACS, other Narrative Course Medical decision making INITIAL cause a 57-year-old male presents emergency department describing a typical palpitation type chest discomfort. Looks well. States worse at night. We'll interrogate his AICD to make sure is not having runs of arrhythmia. Otherwise we'll check labs x-ray, likely discharge for outpatient follow-up. FINAL: AICD interrogation shows no evidence of her troponin is positive. We'll recommend admission for further evaluation. Diagnosis Primary Impression: NSTEMI (non-ST elevated myocardial infarction) Admitting Information Admitting Physician Requests: Admit Elvis Sheridan MD Oct 27, 2017 11:55
[2017-10-27 11:58] LABS: ALKALINE PHOSPHATASE 93 U/L (45-117); TOTAL BILIRUBIN ADULT 0.9 MG/DL (0.2-1.0); TROPONIN I 0.41 NG/ML (0.02-0.05)
[2017-10-27] MEDS ORDERED: HEPARIN-D5W 25,000 U/250 ML 250 ML IV PRN (14:15)
[2017-10-27] MEDS ORDERED: INSULIN ASPART 1,000 UNITS/10 ML VIAL SQ ONE (14:15)
[2017-10-27] MEDS ORDERED: ASPIRIN 81 MG CHEW TAB CHEW ONE (14:15)
[2017-10-27] MEDS ORDERED: HEPARIN SODIUM - IV 10,000 UNITS/10 ML VIAL IV ONE (14:15)
[2017-10-27] MEDS ORDERED: RESP: ALBUTEROL CONC 2.5 MG/0.5 ML NEB NEB PRN (14:30)
[2017-10-27] MEDS ORDERED: SODIUM CHLORIDE 0.9% FLUSH 10 ML FLUSH IV FLUSH PRN (14:30)
--- NOTE | 2017-10-27 14:43 | HHI.HP ---
[facility] Unknown Admission Diagnosis NSTEMI Diagnoses: Chief Complaint: Shortness of breathing Travel History International Travel<30 Days: No Contact w/Intl Traveler <30 Da: No Traveled to Known Affected Are: No History of Present Illness This is a 57-year-old male with history of PA, coronary disease status post stent placement, ischemic cardiopathy status post AICD, history of atrophic fibrillation, type 2 diabetes, and tobacco dependence who presented with shortness of breathing and chest pain. Patient stated that 3 weeks ago he had an upper respiratory infection in which he has shortness of breathing that occur after bouts of cough. Patient stated that this will occur about every 10 minutes. Patient went to see his primary care physician in which she was put on azithromycin. Patient status symptoms did not improve and worsen so he went to the emergency department. Patient does associate the shortage of breathing with mild chest pain only with cough or deep inspiration. Denied any fevers or chills. He stated that he has a lot of chest congestion and unable to cough up the congestion. Patient also stated that he was on a blood thinner but he is not able to give me the name of the blood thinner. All other review system reviewed and negative. Past Family Social History Past Medical History Cardiomyopathy Chronic kidney disease Chronic systolic congestive heart failure History myocardial infarction Coronary artery disease Hypertension Hyperlipidemia Gout Obstructive sleep apnea History of atrial fibrillation Type 2 diabetes insulin-dependent Past Surgical History Cardiac catheterization with stenting AICD placement Left tibia/fibular repair Reported Medications Reported Meds & Active Scripts Active Azithromycin 250 Mg Tab 500 Mg PO DAILY 4 Days Novolog Flexpen Inj (Insulin Aspart) 300 Unit/3 Ml Pen 1 Units SQ ACHS PRN 30 Days Less than 70 No Insulin 150-199 1 unit 200-249 3 units 250-299 5 units 300-349 7 units Greater than 349 9 units and call physician Glucocom Test Strips (Blood Glucose Test Strips) 1 Ivory Ivory 1 Ea .ROUTE DIRECTED Lancets 1 Mis Mis 1 Ea .ROUTE DIRECTED Glucocom Blood Glucose Mo W/Device (Device) 1 Kit Kit 1 Kit .ROUTE DIRECTED Levemir Flextouch Pen Inj (Insulin Detemir) 300 unit/3 ML Pen 10 Units SQ HS 30 Days Reported Atorvastatin (Atorvastatin Calcium) 20 Mg Tab 20 Mg PO HS Xanax (Alprazolam) 0.25 Mg Tab 0.25 Mg PO HS Plavix (Clopidogrel Bisulfate) 75 Mg Tab 75 Mg PO HS Metoprolol Tartrate 50 Mg Tab 50 Mg PO BID Spironolactone 25 Mg Tab 25 Mg PO HS Ramipril 2.5 Mg Cap 2.5 Mg PO HS Amiodarone (Amiodarone HCl) 200 Mg Tab 200 Mg PO HS Allergies: Coded Allergies: morphine (Unverified Adverse Reaction, Unknown, HEADRUSH, 10/27/17) Active Ordered Medications Current Medications Sodium Chloride (NS Flush) 2 ml UNSCH PRN IVF FLUSH AFTER USING IV ACCESS; Start 10/27/17 at 11:15 Albuterol/ Ipratropium (Duoneb Neb) 1 ampule ONCE ONCE NEB Last administered on 10/27/17at 11:32; Start 10/27/17 at 11:30; Stop 10/27/17 at 11:31; Status DC Hydrocodone Bit/ Homatropine Methylb (Hycodan Liq) 5 ml NOW ONCE PO ; Start at 11:30; Stop 10/27/17 at 11:30; Status DC Lorazepam (Ativan) 1 mg ONCE ONCE PO Last administered on 10/27/17at 11:41; Start 10/27/17 at 11:30; Stop 10/27/17 at 11:31; Status DC Guaifenesin (Mucinex Er) 1,200 mg ONCE ONCE PO Last administered on 10/27/17at 11:42; Start 10/27/17 at 11:30; Stop 10/27/17 at 11:31; Status DC Insulin Aspart (NovoLOG INJ) 5 units ONCE ONCE SQ ; Start 10/27/17 at 14:15; Stop 10/27/17 at 14:16; Status DC Aspirin (Aspirin Chew) 162 mg ONCE ONCE CHEW ; Start 10/27/17 at 14:15; Stop at 14:16; Status DC Heparin Sodium (Porcine) (Heparin Inj) 4,000 units ONCE ONCE IV ; Start at 14:15; Stop 10/27/17 at 14:16; Status DC Heparin Sodium (Porcine) (Heparin Inj) 5,000 units UNSCH PRN IV APTT LESS THAN 25; Start 10/27/17 at 20:15 Heparin Sodium (Porcine) (Heparin Inj) 2,500 units UNSCH PRN IV APTT 25 TO 39; Start 10/27/17 at 20:15 Heparin Sodium/ Dextrose 250 ml @ 10 mls/hr TITRATE PRN IV Coagulation Management; Start 10/27/17 at 14:15 Sodium Chloride (NS Flush) 2 ml BID IV FLUSH ; Start 10/27/17 at 21:00; Status UNV Sodium Chloride (NS Flush) 2 ml UNSCH PRN IV FLUSH FLUSH AFTER USING IV ACCESS ; Start 10/27/17 at 14:30; Status UNV Nitroglycerin (Nitroglycerin 2% Oint) 1 inch Q6HR TOP ; Start 10/27/17 at 18:00 ; Status UNV Acetaminophen (Tylenol) 500 mg Q4H PRN PO HEADACHE; Start 10/27/17 at 14:30; Status UNV Methylprednisolone Sodium Succinate (SoluMEDROL INJ) 40 mg Q6HR IV PUSH ; Start 10/27/17 at 14:30; Status UNV Albuterol/ Ipratropium (Duoneb Neb) 1 ampule QID NEB NEB ; Start 10/27/17 at 16 :00; Status UNV Albuterol Sulfate (Albuterol Concentrated Neb) 2.5 mg Q2HR NEB PRN NEB SOB/ WHEEZING; Start 10/27/17 at 14:30; Status UNV Loratadine (Claritin) 10 mg DAILY PO ; Start 10/27/17 at 14:30; Status UNV Azithromycin 500 mg/Sodium Chloride 250 ml @ 250 mls/hr Q24H IV ; Start at 14:45; Stop 10/27/17 at 14:45; Status DC Guaifenesin (Mucinex Er) 1,200 mg BID PO ; Start 10/27/17 at 14:45; Status UNV Alprazolam (Xanax) 0.25 mg HS PO ; Start 10/27/17 at 21:00; Status UNV Amiodarone HCl (Cordarone) 200 mg HS PO ; Start 10/27/17 at 21:00; Status UNV Atorvastatin Calcium (Lipitor) 20 mg HS PO ; Start 10/27/17 at 21:00; Status UNV Clopidogrel Bisulfate (Plavix) 75 mg HS PO ; Start 10/27/17 at 21:00; Status UNV Metoprolol Tartrate (Lopressor) 50 mg BID PO ; Start 10/27/17 at 21:00; Status UNV Ramipril (Altace) 2.5 mg HS PO ; Start 10/27/17 at 21:00; Status UNV Spironolactone (Aldactone) 25 mg HS PO ; Start 10/27/17 at 21:00; Status UNV Levofloxacin/ Dextrose 100 ml @ 100 mls/hr Q24H IV ; Start 10/27/17 at 14:45; Status UNV Aspirin (Ecotrin Ec) 81 mg DAILY PO ; Start 10/28/17 at 09:00; Status UNV Family History Reviewed mother and father with diabetes. No family history of heart disease. Social History Smokes about 1 pack every 2 months since he was 18 years old. Denies any alcohol or illicit drugs Physical Exam Vital Signs Vital Signs Date Time Temp Pulse Resp B/P (MAP) Pulse Ox O2 Delivery O2 Flow Rate FiO2 10/27/17 11:27 95 Nasal Cannula 2.00 10/27/17 11:26 95 Nasal Cannula 2.00 10/27/17 11:11 92 30 95 Nasal Cannula 2.00 10/27/17 10:38 100.8 83 22 121/68 (85) 95 Room Air Physical Exam GENERAL: This is a well-nourished, well-developed patient, in no apparent distress. SKIN: No rashes, ecchymoses or lesions. Cool and dry. HEAD: Atraumatic. Normocephalic. No temporal or scalp tenderness. EYES: Pupils equal round and reactive. Extraocular motions intact. No scleral icterus. No injection or drainage. ENT: Nose without bleeding, purulent drainage or septal hematoma. Throat without erythema, tonsillar hypertrophy or exudate. Uvula midline. Airway patent. NECK: Trachea midline. No JVD or lymphadenopathy. Supple, nontender, no meningeal signs. CARDIOVASCULAR: Regular rate and rhythm without murmurs, gallops, or rubs. RESPIRATORY: Diffuse wheezing Breath sounds equal bilaterally. No rhonchi or rales. GASTROINTESTINAL: Abdomen soft, non-tender, nondistended. No hepato-splenomegaly , or palpable masses. No guarding. MUSCULOSKELETAL: Extremities without clubbing, cyanosis, or edema. No joint tenderness, effusion, or edema noted. No calf tenderness. Negative Homans sign bilaterally. NEUROLOGICAL: Awake and alert. Cranial nerves II through XII intact. Motor and sensory grossly within normal limits. Five out of 5 muscle strength in all muscle groups. Normal speech. Laboratory Laboratory Tests Test 10/27/17 11:15 White Blood Count 11.4 Red Blood Count 4.70 Hemoglobin 15.5 Hematocrit 44.1 Mean Corpuscular Volume 94.0 Mean Corpuscular Hemoglobin 33.0 Mean Corpuscular Hemoglobin Concent 35.1 Red Cell Distribution Width 14.5 Platelet Count 196 Mean Platelet Volume 8.8 Neutrophils (%) (Auto) 85.0 Lymphocytes (%) (Auto) 7.1 Monocytes (%) (Auto) 7.8 Eosinophils (%) (Auto) 0.0 Basophils (%) (Auto) 0.1 Neutrophils # (Auto) 9.7 Lymphocytes # (Auto) 0.8 Monocytes # (Auto) 0.9 Eosinophils # (Auto) 0.0 Basophils # (Auto) 0.0 CBC Comment DIFF FINAL Differential Comment Prothrombin Time 10.4 Prothromb Time International Ratio 1.0 Activated Partial Thromboplast Time 34.1 Blood Urea Nitrogen 38 Creatinine 1.99 Random Glucose 251 Total Protein 7.0 Albumin 3.1 Calcium Level 9.2 Magnesium Level 2.0 Alkaline Phosphatase 93 Aspartate Amino Transf (AST/SGOT) 40 Alanine Aminotransferase (ALT/SGPT) 21 Total Bilirubin 0.9 Sodium Level 129 Potassium Level 4.6 Chloride Level 93 Carbon Dioxide Level 27.5 Anion Gap 9 Estimat Glomerular Filtration Rate 35 Troponin I 0.41 Lipase 337 Result Diagram: 10/27/17 1115 10/27/17 1115 Imaging Last Impressions Chest X-Ray 10/27/17 1112 Signed Impressions: Service Date/Time: Friday, October 27, 2017 11:34 - CONCLUSION: 1. Cardiomegaly with mild positive fluid balance. 2. Mild bibasilar airspace disease, likely atelectasis. MD Sheila Wahl VTE Risk Assessment Sheila VTE Risk Assessment: Mod/High Risk (score >= 2) Caprini Risk Assessment Model Point Value = 1 Point Value = 2 Point Value = 3 Point Value = 5 Age 41-60 Minor surgery BMI > 25 kg/m2 Swollen legs Varicose veins or History of unexplained or recurrent spontaneous Oral contraceptives or hormone replacement Sepsis (< 1 month) Serious lung disease, including pneumonia (< 1 month) Abnormal pulmonary function Acute myocardial infarction Congestive heart failure (< 1 month) History of inflammatory bowel disease Medical patient at bed rest Age 61-74 Arthroscopic surgery Major open surgery (> 45 min) Laparoscopic surgery (> 45 min) Malignancy Confined to bed (> 72 hours) Immobilizing plaster cast Central venous access Age >= 75 History of VTE Family history of VTE Factor V Leiden Prothrombin [id number] Lupus anticoagulant Anticardiolipin antibodies Elevated serum homocysteine Heparin-induced thrombocytopenia Other congenital or acquired thrombophilia Stroke (< 1 month) Elective arthroplasty Hip, pelvis, or leg fracture Acute spinal cord injury (< 1 month) Prophylaxis Regimen Total Risk Factor Score Risk Level Prophylaxis Regimen 0-1 Low Early ambulation 2 Moderate Order ONE of the following: *Sequential Compression Device (SCD) *Heparin 5000 units SQ BID 3-4 Higher Order ONE of the following medications: *Heparin 5000 units SQ TID *Enoxaparin/Lovenox 40 mg SQ daily (WT < 150 kg, CrCl > 30 mL/min) *Enoxaparin/Lovenox 30 mg SQ daily (WT < 150 kg, CrCl > 10-29 mL/min) *Enoxaparin/Lovenox 30 mg SQ BID (WT < 150 kg, CrCl > 30 mL/min) AND/OR *Sequential Compression Device (SCD) 5 or more Highest Order ONE of the following medications: *Heparin 5000 units SQ TID (Preferred with Epidurals) *Enoxaparin/Lovenox 40 mg SQ daily (WT < 150 kg, CrCl > 30 mL/min) *Enoxaparin/Lovenox 30 mg SQ daily (WT < 150 kg, CrCl > 10-29 mL/min) *Enoxaparin/Lovenox 30 mg SQ BID (WT < 150 kg, CrCl > 30 mL/min) AND *Sequential Compression Device (SCD) Assessment and Plan Assessment and Plan This is a 57-year-old male with extensive past medical history including history of PA, coronary artery disease status post stent placement, type 2 diabetes, tobacco dependence who presented with shortness of breathing Acute respiratory failure with hypoxia -Occurred over the past 3 weeks with no improvement on azithromycin. Chest x- ray shows mild positive fluid balance otherwise negative. Positive for URI and chest congestion. Patient does have wheezing upon examination. -COPD exacerbation versus reactive airway disease. Patient does not have an official diagnosis of COPD but he does have a long extensive history of tobacco use. -Will start patient on Solu-Medrol, scheduled DuoNeb nebs, albuterol when necessary, Levaquin, Claritin and Mucinex. Monitor patient clinically. Atypical chest pain -Chest pain only occurs with cough. Troponin is elevated at 0.41. EKG shows left bundle branch block which is stable from prior EKGs. Chest pain seems to be more pleuritic. Due to patient being high risk for a cardiovascular event will rule out ACS. Will trend cardiac enzymes. We'll get a 2-D echo, lipid panel, hemoglobin A1c, monitor telemetry. 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 -We'll place Nitrol paste. Patient already given aspirin and was started on a heparin drip by the emergency physician. Continue regimen. -Home regimen including beta ivonne, statin restart. Elevated troponin -See treatment as above. Acute on chronic renal disease -Prior creatinine was 1.6 on 03/22/2017. Creatinine now 1.99. -Continue to monitor. Strict ins and outs. Avoid nephrotoxins. History of atrial fibrillation -Patient is not on anticoagulation. He is high risk for cardiac embolic stroke. 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 Management/ recommendations per Dr. Cash. Type 2 diabetes -Patient stated that he was taking Levemir 30 units at night and recently has been increased to 45 units at night. -Will start patient on Levemir 10 units twice a day and put him on a moderate dose insulin sliding scale. -Hypoglycemia protocol. Continue to monitor her Accu-Cheks. Coronary artery disease status post stent placement, ischemic cardiomyopathy with AICD placement -Will resume home medication. AICD already interrogated in ED no arrhythmias. DVT prophylaxis -Heparin Discussed Condition With patient and Dr. Lyman. Physician Certification 2 Midnight Certification Type: Continued Stay Order for Inpatient Services The services are ordered in accordance with Medicare regulations or non- Medicare payer requirements, as applicable. In the case of services not specified as inpatient-only, they are appropriately provided as inpatient services in accordance with the 2-midnight benchmark. Estimated LOS (days): 3 3 days is the estimated time the patient will need to remain in the hospital, assuming treatment plan goals are met and no additional complications. Post-Hospital Plan: Kavya Weiss MD Oct 27, 2017 14:43
[2017-10-27] MEDS ORDERED: AZITHROMYCIN INJ 500 MG in SODIUM CHLOR 0.9% 250 ML INJ 250 ML IV SCH (14:45)
[2017-10-27] MEDS: guaiFENesin E.R. 600 MG TAB PO SCH ×2 (15:00→20:56)
[2017-10-27] MEDS ORDERED: DEXTROSE 50% IN WATER 50 ML VIAL(D50) IV PUSH PRN (15:00)
[2017-10-27] MEDS ORDERED: GLUCAGON 1 MG/ML VIAL OTHER PRN (15:00)
[2017-10-27] MEDS: methylPREDNISolone SOD SUCC 40 MG/1 ML VIAL IV PUSH SCH ×2 (15:11→20:58)
[2017-10-27 15:23] LABS: HEMATOCRIT 44.5 % (39.0-51.0); HEMOGLOBIN 15.2 GM/DL (13.0-17.0); MEAN CORPUSCULAR HGB CONC 34.1 % (32.0-36.0); MEAN PLATELET VOLUME 8.8 FL (7.0-11.0); PLATELET COUNT 185 TH/MM3 (150-450); RED BLOOD COUNT 4.74 MIL/MM3 (4.50-5.90); RED CELL DISTRIBUTION WIDTH 14.5 % (11.6-17.2); WHITE BLOOD COUNT 10.5 TH/MM3 (4.0-11.0)
[2017-10-27] MEDS: RESP: ALBUTEROL 2.5 MG/IPRATROPIUM 0.5 MG NEB (SCH) NEB ×2 (16:00→20:43)
[2017-10-27] MEDS: LEVOFLOXACIN 500 MG PREMIX INJ 100 ML IV SCH (17:00)
[2017-10-27] MEDS: INSULIN ASPART SUPPLEMENTAL SCALE SQ SCH ×2 (17:00→20:58)
[2017-10-27] MEDS: LORATADINE 10 MG TAB PO SCH (17:14)
[2017-10-27] MEDS: NITROGLYCERIN 2% OINT 1 GM PACKET TOP SCH (18:33)
[2017-10-27] MEDS ORDERED: HEPARIN SODIUM - IV 10,000 UNITS/10 ML VIAL IV PRN ×2 (20:15)
[2017-10-27] MEDS: METOPROLOL TARTRATE 50 MG TAB PO SCH (20:52)
[2017-10-27] MEDS: SPIRONOLACTONE 25 MG TAB PO SCH (20:56)
[2017-10-27] MEDS: ATORVASTATIN 20 MG TAB PO SCH (20:56)
[2017-10-27] MEDS: AMIODARONE 200 MG TAB PO SCH (20:56)
[2017-10-27] MEDS: ALPRAZolam 0.25 MG TAB PO SCH (20:56)
[2017-10-27] MEDS: CLOPIDOGREL 75 MG TAB PO SCH (20:57)
[2017-10-27] MEDS: INSULIN DETEMIR 100 UNITS/ML VIAL SQ SCH (20:58)
[2017-10-27] MEDS: SODIUM CHLORIDE 0.9% FLUSH 10 ML FLUSH IV FLUSH SCH (20:58)
[2017-10-27] MEDS: RAMIPRIL 2.5 MG CAP PO SCH ×2 (21:00→21:01)
[2017-10-27 22:20] LABS: TROPONIN I 0.33 NG/ML (0.02-0.05)
[2017-10-27 22:41] LABS: HEMOGLOBIN A1C 11.5 % (4.3-6.0)
[2017-10-28] VITALS (25 sets, daily range): BP systolic 96–121; BP diastolic 55–67; PULSE 72–113; RESP 20; TEMP 97.9–99.3; O2SAT 92–96
--- NOTE | 2017-10-28 00:33 | EKG ---
Date Performed: 10/27/2017 Time Performed: 17:51:16 PTAGE: 57 years EKG: Sinus tachycardia. Left axis deviation LBBB Abnormal ECG PREVIOUS TRACING : 10/27/2017 11.00 Since the prior tracing, there has been no significant packer DOCTOR: Walter Henry Interpretating Date/Time 10/28/2017 00:31:25
[2017-10-28] MEDS: NITROGLYCERIN 2% OINT 1 GM PACKET TOP SCH ×5 (00:46→23:19)
[2017-10-28 03:30] LABS: TROPONIN I 0.29 NG/ML (0.02-0.05)
[2017-10-28] MEDS: methylPREDNISolone SOD SUCC 40 MG/1 ML VIAL IV PUSH SCH ×4 (03:57→21:19)
[2017-10-28] MEDS: RESP: ALBUTEROL 2.5 MG/IPRATROPIUM 0.5 MG NEB (SCH) NEB ×4 (07:36→20:33)
[2017-10-28 07:56] LABS: CHOLESTEROL/ HDL RATIO 6.21 RATIO; HDL CHOLESTEROL 35.1 MG/DL (40.0-60.0)
[2017-10-28] MEDS: INSULIN ASPART SUPPLEMENTAL SCALE SQ SCH ×4 (08:00→21:18)
--- NOTE | 2017-10-28 08:51 | MB ---
cc: YURIY NICOLE M.D. DATE OF CONSULTATION 10/28/2017 REASON FOR CONSULTATION Positive troponin. HISTORY OF PRESENT ILLNESS This is a 57-year-old female who is well-known to me. He has a past medical history of coronary artery disease status post stenting, ischemic cardiomyopathy status post AICD, history of atrial fibrillation in the past, type 2 diabetes mellitus and tobacco abuse. The patient presented to [place] emergency room with a complaint of increasing shortness of breath and chest discomfort. The chest pain was exacerbated by deep breaths and it sounded pleuritic. Initial workup included EKG which showed a left bundle-branch block which is unchanged from previous EKG's. Troponin came back positive at 0.40. I was consulted for further evaluation and management. Chest x-ray on admission showed pulmonary congestion, decompensated congestive heart failure. This morning, the patient is chest pain-free. His shortness of breath has improved, however he continues to have a severe dry cough. He denies otherwise presyncope or syncope. SOCIAL HISTORY The patient is a smoker. He is trying to cut down. He also used to drink, but quit. FAMILY HISTORY Noncontributory REVIEW OF SYSTEMS HEENT: No complaints of light headedness or dizziness. CARDIOVASCULAR: History of coronary artery disease status post coronary artery disease and stenting and cardiomyopathy status post AICD placement. PULMONARY: No history of asthma or COPD. GASTROINTESTINAL: No history of GI bleed. : No history of renal failure. ENDOCRINE: Positive for type 2 diabetes mellitus and hyperlipemia, the remainder of his review of systems is within normal limits. PHYSICAL EXAM Physical examination showed a blood pressure of 130/70 with a heart rate of 70, respiratory of 12. The patient is afebrile. NECK: Supple with no jugular venous distension. CHEST: Mild crackles bilaterally. HEART: S1 normal intensity, S2 single. Regular rate and rhythm. No S3 appreciated. ABDOMEN: Benign. EXTREMITIES: No edema, clubbing or cyanosis. IMPRESSION 1. Positive troponin possibly secondary to chronic kidney disease. 2. Mild decompensated congestive heart failure now secondary to acute on chronic systolic dysfunction. 3. Bronchitis with pleuritic chest pain. 4. History of coronary artery disease in the past. 5. History of cardiomyopathy with an ejection fraction of 35%. 6. Status post AICD. 7. Hypertension 8. Hyperlipidemia 9. Type 2 diabetes mellitus 10. Tobacco abuse. RECOMMENDATIONS The patient had a left heart catheterization couple of years ago which showed diffuse disease involving the RCA. This was not amenable to intervention. His chest pain is currently pleuritic. The positive troponin is possibly secondary to elevated kidney function, however, I still discussed the possible need for left heart catheterization to rule out obstructive coronary artery disease. I explained the high risk involved of developing end-stage renal disease requiring hemodialysis. The patient at this point wanted to be treated medically. He is currently on antibiotics for bronchitis. I recommend medical management at this point. I will continue to follow and provide further recommendation accordingly. MD JAZMYNE Clifford/ALFIE /8:19 AM /8:30 AM
[2017-10-28] MEDS: guaiFENesin E.R. 600 MG TAB PO SCH ×2 (08:54→21:21)
[2017-10-28] MEDS: SODIUM CHLORIDE 0.9% FLUSH 10 ML FLUSH IV FLUSH SCH ×2 (08:54→21:21)
[2017-10-28] MEDS: ASPIRIN EC 81 MG TABEC PO SCH (08:54)
[2017-10-28] MEDS: METOPROLOL TARTRATE 50 MG TAB PO SCH ×2 (08:55→21:19)
[2017-10-28] MEDS: INSULIN DETEMIR 100 UNITS/ML VIAL SQ SCH ×2 (08:55→21:18)
[2017-10-28] MEDS: LORATADINE 10 MG TAB PO SCH (08:55)
[2017-10-28 10:20] LABS: BICARBONATE 23.1 MEQ/L (21.0-32.0); CALCIUM 9.1 MG/DL (8.5-10.1); CREATININE 1.67 MG/DL (0.60-1.30)
[2017-10-28] MEDS ORDERED: INSULIN DETEMIR 100 UNITS/ML VIAL SQ ONE (11:15)
[2017-10-28 12:47] LABS: CALCIUM 9.1 MG/DL (8.5-10.1); CREATININE 1.72 MG/DL (0.60-1.30)
[2017-10-28] MEDS: ACETAMINOPHEN/HYDROcodone 325 MG/5 MG TAB PO PRN ×2 (13:30→19:08)
[2017-10-28] MEDS: LORazepam 1 MG TAB PO PRN (13:46)
--- NOTE | 2017-10-28 14:15 | RADRPT ---
EXAM DATE/TIME: 10/28/2017 13:19 [facility] COMPARISON: CHEST SINGLE AP, October 27, 2017, 11:34. INDICATIONS : Short of breath, chest pain MEDICAL HISTORY : Congestive heart failure. Myocardial infarction. SURGICAL HISTORY : defibrillator, coronary artery stents x 3 ENCOUNTER: Subsequent ACUITY: 1 month PAIN SCORE: 10/10 LOCATION: Bilateral chest FINDINGS: PA and lateral views of the chest. AICD in place. Increased right lower lung consolidation involving the right middle lobe and right lower lobe. Moderate cardiac silhouette enlargement unchanged. No lauren dence of pleural effusion or pneumothorax. CONCLUSION: Increased right lower lung consolidation. Harry Huertas MD on October 28, 2017 at 14:11 Board Certified Radiologist. This report was verified electronically.
--- NOTE | 2017-10-28 15:41 | HHI.PR ---
Subjective Remarks Follow-up for shortness of breathing chest pain Patient complaining of chest pain with cough. Positive for shortness of breathing but that remains the same. Positive for cough. Patient asking for IV Ativan. Remains afebrile. No other complaints. Patient's nurse at the bedside during the interview. Objective Vitals Vital Signs Date Time Temp Pulse Resp B/P (MAP) Pulse Ox O2 Delivery O2 Flow Rate FiO2 10/28/17 15:00 82 10/28/17 15:00 97.9 72 20 100/55 (70) 96 10/28/17 14:00 92 10/28/17 13:00 76 10/28/17 12:00 76 10/28/17 11:00 98.0 90 20 96/58 (71) 92 10/28/17 11:00 75 10/28/17 10:00 78 10/28/17 09:00 82 10/28/17 08:00 74 10/28/17 07:45 75 10/28/17 07:45 98.9 76 20 101/62 (75) 95 10/28/17 07:37 96 Nasal Cannula 2.00 10/28/17 06:00 72 10/28/17 05:00 74 10/28/17 04:00 80 10/28/17 03:00 85 10/28/17 03:00 98.9 77 20 102/67 (79) 95 10/28/17 02:00 100 10/28/17 01:00 94 10/28/17 00:00 92 10/27/17 23:00 99.7 90 22 111/63 (79) 95 10/27/17 23:00 97 10/27/17 22:00 100 10/27/17 21:17 102 118/83 (95) 10/27/17 21:00 102 10/27/17 20:43 93 Nasal Cannula 3.00 10/27/17 20:00 100 10/27/17 20:00 99.8 107 22 106/79 (88) 93 10/27/17 19:00 101 10/27/17 18:00 106 10/27/17 17:00 96 10/27/17 16:10 93 10/27/17 16:00 98.6 90 22 126/75 (92) 93 10/27/17 15:55 I/O 10/27/17 10/27/17 10/27/17 10/28/17 10/28/17 10/28/17 07:00 15:00 23:00 07:00 15:00 23:00 Intake Total 420 ml Output Total 820 ml Balance -400 ml Intake Oral 420 ml Output Urine Total 820 ml # Bowel Movements 0 Result Diagram: 10/27/17 1445 10/28/17 1150 Imaging Last Impressions Chest X-Ray 10/28/17 0000 Signed Impressions: Service Date/Time: October 13:19 - CONCLUSION: Increased right lower lung consolidation. Harry Huertas MD Objective Remarks GENERAL: In no acute distress. CARDIOVASCULAR: Regular rate and rhythm without murmurs, gallops, or rubs. Reproducible chest pain with palpation of the chest wall RESPIRATORY: Bilateral rhonchi. No accessory muscle use. GASTROINTESTINAL: Abdomen soft, non-tender, nondistended. MUSCULOSKELETAL: No cyanosis, or edema. BACK: Nontender without obvious deformity. No CVA tenderness. Medications and IVs Current Medications Sodium Chloride (NS Flush) 2 ml UNSCH PRN IVF FLUSH AFTER USING IV ACCESS; Start 10/27/17 at 11:15; Stop 10/27/17 at 14:50; Status DC Albuterol/ Ipratropium (Duoneb Neb) 1 ampule ONCE ONCE NEB Last administered on 10/27/17at 11:32; Start 10/27/17 at 11:30; Stop 10/27/17 at 11:31; Status DC Hydrocodone Bit/ Homatropine Methylb (Hycodan Liq) 5 ml NOW ONCE PO ; Start at 11:30; Stop 10/27/17 at 11:30; Status DC Lorazepam (Ativan) 1 mg ONCE ONCE PO Last administered on 10/27/17at 11:41; Start 10/27/17 at 11:30; Stop 10/27/17 at 11:31; Status DC Guaifenesin (Mucinex Er) 1,200 mg ONCE ONCE PO Last administered on 10/27/17at 11:42; Start 10/27/17 at 11:30; Stop 10/27/17 at 11:31; Status DC Insulin Aspart (NovoLOG INJ) 5 units ONCE ONCE SQ Last administered on at 15:10; Start 10/27/17 at 14:15; Stop 10/27/17 at 14:16; Status DC Aspirin (Aspirin Chew) 162 mg ONCE ONCE CHEW Last administered on 10/27/17at 15 :10; Start 10/27/17 at 14:15; Stop 10/27/17 at 14:16; Status DC Heparin Sodium (Porcine) (Heparin Inj) 4,000 units ONCE ONCE IV Last administered on 10/27/17at 15:47; Start 10/27/17 at 14:15; Stop 10/27/17 at 14:16 ; Status DC Heparin Sodium (Porcine) (Heparin Inj) 5,000 units UNSCH PRN IV APTT LESS THAN 25; Start 10/27/17 at 20:15 Heparin Sodium (Porcine) (Heparin Inj) 2,500 units UNSCH PRN IV APTT 25 TO 39; Start 10/27/17 at 20:15 Heparin Sodium/ Dextrose 250 ml @ 10 mls/hr TITRATE PRN IV Coagulation Management Last administered on 10/27/17at 15:49; Start 10/27/17 at 14:15 Sodium Chloride (NS Flush) 2 ml BID IV FLUSH Last administered on 10/28/17at 08: 54; Start 10/27/17 at 21:00 Sodium Chloride (NS Flush) 2 ml UNSCH PRN IV FLUSH FLUSH AFTER USING IV ACCESS ; Start 10/27/17 at 14:30 Nitroglycerin (Nitroglycerin 2% Oint) 1 inch Q6HR TOP Last administered on 10/28at 11:43; Start 10/27/17 at 18:00 Acetaminophen (Tylenol) 500 mg Q4H PRN PO HEADACHE; Start 10/27/17 at 14:30 Methylprednisolone Sodium Succinate (SoluMEDROL INJ) 40 mg Q6H IV PUSH Last administered on 10/28/17at 14:44; Start 10/27/17 at 15:00 Albuterol/ Ipratropium (Duoneb Neb) 1 ampule QID NEB NEB Last administered on 10/28/17at 12:28; Start 10/27/17 at 16:00 Albuterol Sulfate (Albuterol Concentrated Neb) 2.5 mg Q2HR NEB PRN NEB SOB/ WHEEZING; Start 10/27/17 at 14:30 Loratadine (Claritin) 10 mg DAILY PO Last administered on 10/28/17 08:55; Start 10/27/17 at 16:00 Azithromycin 500 mg/Sodium Chloride 250 ml @ 250 mls/hr Q24H IV ; Start at 14:45; Stop 10/27/17 at 14:45; Status DC Guaifenesin (Mucinex Er) 1,200 mg BID PO Last administered on 10/28/17at 08:54; Start 10/27/17 at 15:00 Alprazolam (Xanax) 0.25 mg HS PO Last administered on 10/27/17at 20:56; Start at 21:00 Amiodarone HCl (Cordarone) 200 mg HS PO Last administered on 10/27/17at 20:56; Start 10/27/17 at 21:00 Atorvastatin Calcium (Lipitor) 20 mg HS PO Last administered on 10/27/17at 20:56 ; Start 10/27/17 at 21:00 Clopidogrel Bisulfate (Plavix) 75 mg HS PO Last administered on 10/27/17at 20:57 ; Start 10/27/17 at 21:00 Metoprolol Tartrate (Lopressor) 50 mg BID PO Last administered on 10/28/17at 08: 55; Start 10/27/17 at 21:00 Ramipril (Altace) 2.5 mg HS PO Last administered on 10/27/17at 21:00; Start at 21:00 Spironolactone (Aldactone) 25 mg HS PO Last administered on 10/27/17at 20:56; Start 10/27/17 at 21:00 Levofloxacin/ Dextrose 100 ml @ 100 mls/hr Q24H IV Last administered on at 17:00; Start 10/27/17 at 16:00 Aspirin (Ecotrin Ec) 81 mg DAILY PO Last administered on 10/28/17at 08:54; Start 10/28/17 at 09:00 Dextrose (D50w (Vial) Inj) 50 ml UNSCH PRN IV PUSH HYPOGLYCEMIA-SEE COMMENTS; Start 10/27/17 at 15:00 Glucagon (Glucagon Inj) 1 mg UNSCH PRN OTHER HYPOGLYCEMIA-SEE COMMENTS; Start 10/27/17 at 15:00 Insulin Aspart (NovoLOG SUPPLEMENTAL SCALE) 1 ACHS SLIDING SCALE SQ Last administered on 10/28/17at 11:43; Start 10/27/17 at 17:00 Insulin Detemir (Levemir Inj) 10 units Q12HR SQ Last administered on 10/28/17at 08:55; Start 10/27/17 at 21:00; Stop 10/28/17 at 11:09; Status DC Insulin Detemir (Levemir Inj) 15 units Q12HR SQ ; Start 10/28/17 at 21:00 Insulin Detemir (Levemir Inj) 10 units ONCE ONCE SQ Last administered on at 11:15; Start 10/28/17 at 11:15; Stop 10/28/17 at 11:16; Status DC Acetaminophen/ Hydrocodone Bitart ([place] 5-325 Mg) 1 tab Q4H PRN PO pain>3 Last administered on 10/28/17at 13:30; Start 10/28/17 at 12:15 Lorazepam (Ativan) 1 mg Q8H PRN PO anxiety Last administered on 10/28/17at 13:46 ; Start 10/28/17 at 12:15 A/P Assessment and Plan This is a 57-year-old male with extensive past medical history including history of PR, coronary artery disease status post stent placement, type 2 diabetes, tobacco dependence who presented with shortness of breathing Acute respiratory failure with hypoxia -Occurred over the past 3 weeks with no improvement on azithromycin. Chest x- ray shows mild positive fluid balance otherwise negative. Positive for URI and chest congestion. -COPD exacerbation versus reactive airway disease. Patient does not have an official diagnosis of COPD but he does have a long extensive history of tobacco use. -Improving continue with Solu-Medrol, scheduled DuoNeb nebs, albuterol when necessary, Levaquin, Claritin and Mucinex. Monitor patient clinically. -Repeat chest x-ray. Atypical chest pain -Chest pain only occurs with cough. Troponin is elevated at 0.41 and is flat. EKG shows left bundle branch block which is stable from prior EKGs. Chest pain seems to be more pleuritic. Due to patient being high risk for a cardiovascular event will rule out ACS and which Cardizem enzymes are trending down. -I consulted patient's acid maker Dr. Odonnell who stated very unlikely this is cardiac in nature. Based on discussion between acid maker and patient will focus on medical management. -Consult patient's acid maker Dr. Cash. -Continue current regimen but will discontinue heparin drip. Elevated troponin -See treatment as above. Acute on chronic renal disease -Prior creatinine was 1.6 on 03/22/2017. Today creatinine 1.79. -Continue to monitor. Strict ins and outs. Avoid nephrotoxins. History of atrial fibrillation -Patient is not on anticoagulation. He is high risk for cardiac embolic stroke. Patient does have a acid maker Dr. Odonnell. Management/ recommendations per Dr. Cash. Type 2 diabetes -Patient stated that he was taking Levemir 30 units at night. -Blood sugars in the 500s. Increase Levemir to 15 units twice a day and continue moderate dose insulin sliding scale. -Hypoglycemia protocol. Continue to monitor her Accu-Cheks. Coronary artery disease status post stent placement, ischemic cardiomyopathy with AICD placement -Continue home medication. AICD already interrogated in ED no arrhythmias. DVT prophylaxis -Heparin Kavya Thomas MD Oct 28, 2017 15:41
[2017-10-28] MEDS: LEVOFLOXACIN 500 MG PREMIX INJ 100 ML IV SCH (16:11)
--- NOTE | 2017-10-28 18:08 | ECHRPT ---
Indication: Chest pain, unspecified CONCLUSIONS The left ventricular systolic function is severely reduced with an estimated ejection fraction in th e range of 25-30%. Mild concentric left ventricular hypertrophy. Severely dilated left ventricle. Moderate mitral valve regurgitation. There is moderate tricuspid regurgitation. The estimated pulmonary arterial pressure is 46.2 mmHg. BP: 102 / 67 HR: 85 Rhythm: Other MEASUREMENTS (Male / Female) Normal Values Technical Quality:Good 2D ECHO LV Diastolic Diameter PLAX 7.2 cm 4.2 - 5.9 / 3.9 - 5.3 cm LV Systolic Diameter PLAX 6.5 cm IVS Diastolic Thickness 1.3 cm 0.6 - 1.0 / 0.6 - 0.9 cm LVPW Diastolic Thickness 1.3 cm 0.6 - 1.0 / 0.6 - 0.9 cm LV Relative Wall Thickness 0.3 LVOT Diameter 2.6 cm M-MODE Aortic Root Diameter MM 3.2 cm LA Systolic Diameter MM 4.2 cm LA Ao Ratio MM 1.3 AV Cusp Separation MM 1.9 cm DOPPLER AV Peak Velocity 144.0 cm/s AV Peak Gradient 8.3 mmHg LVOT Peak Velocity 59.7 cm/s LVOT Peak Gradient 1.4 mmHg AV Area Cont Eq pk 2.2 cm MR Peak Velocity 429.5 cm/s MR Peak Gradient 73.8 mmHg TR Peak Velocity 301.0 cm/s TR Peak Gradient 36.2 mmHg Right Atrial Pressure 10.0 mmHg Pulmonary Artery Systolic Pressu 46.2 mmHg Right Ventricular Systolic Press 46.2 mmHg PV Peak Velocity 103.0 cm/s PV Peak Gradient 4.2 mmHg FINDINGS LEFT VENTRICLE The left ventricular systolic function is severely reduced with an estimated ejection fraction in th e range of 25-30%. Mild concentric left ventricular hypertrophy. Severely dilated left ventricle. RIGHT VENTRICLE Normal right ventricular size and systolic function. LEFT ATRIUM The left atrial size is normal. RIGHT ATRIUM The right atrial size is normal. ATRIAL SEPTUM Normal atrial septal thickness without atrial level shunting by limited color doppler interrogation. AORTA The aortic root and proximal ascending aorta are normal in size on limited imaging. MITRAL VALVE Moderate mitral valve regurgitation. AORTIC VALVE Trileaflet aortic valve. No aortic valve stenosis or regurgitation. TRICUSPID VALVE There is moderate tricuspid regurgitation. The estimated pulmonary arterial pressure is 46.2 mmHg. PULMONARY VALVE No pulmonary valve regurgitation or stenosis. VESSELS The inferior vena cava is normal in size. PERICARDIUM No pericardial effusion. Bobby Powell-Melissa MD (Electronically Signed) Final Date:28 October 2017 18:07
[2017-10-28] MEDS ORDERED: FUROSEMIDE 20 MG/2 ML VIAL IV PUSH ONE (19:00)
[2017-10-28] MEDS ORDERED: INSULIN DETEMIR 100 UNITS/ML VIAL SQ SCH (21:00)
[2017-10-28] MEDS: SPIRONOLACTONE 25 MG TAB PO SCH (21:19)
[2017-10-28] MEDS: ALPRAZolam 0.25 MG TAB PO SCH (21:19)
[2017-10-28] MEDS: ATORVASTATIN 20 MG TAB PO SCH (21:20)
[2017-10-28] MEDS: RAMIPRIL 2.5 MG CAP PO SCH (21:20)
[2017-10-28] MEDS: CLOPIDOGREL 75 MG TAB PO SCH (21:20)
[2017-10-28] MEDS: AMIODARONE 200 MG TAB PO SCH (21:21)
[2017-10-29] VITALS (30 sets, daily range): BP systolic 84–149; BP diastolic 59–97; PULSE 72–119; RESP 20–28; TEMP 97.7–100.4; O2SAT 88–96
--- NOTE | 2017-10-29 00:12 | EKG ---
Date Performed: 10/27/2017 Time Performed: 11:00:09 PTAGE: 57 years EKG: Sinus rhythm WITH OCCASIONAL VENTRICULAR PREMATURE COMPLEXES MARKED LEFT AXIS DEVIATION LEFT BUNDLE BRANCH BLOCK ABNORMAL ECG PREVIOUS TRACING : 10/20/2017 21.40 Since the prior tracing, there has been no significant packer DOCTOR: Walter Henry Interpretating Date/Time 10/29/2017 00:10:41
[2017-10-29] MEDS ORDERED: INSULIN ASPART 1,000 UNITS/10 ML VIAL SQ ONE (01:30)
[2017-10-29] MEDS: methylPREDNISolone SOD SUCC 40 MG/1 ML VIAL IV PUSH SCH ×4 (02:55→22:30)
[2017-10-29] MEDS: NITROGLYCERIN 2% OINT 1 GM PACKET TOP SCH ×2 (05:25→11:38)
[2017-10-29] MEDS: RESP: ALBUTEROL 2.5 MG/IPRATROPIUM 0.5 MG NEB (SCH) NEB ×3 (08:00→21:29)
[2017-10-29] MEDS: METOPROLOL TARTRATE 50 MG TAB PO SCH ×2 (08:32→22:31)
[2017-10-29] MEDS: ASPIRIN EC 81 MG TABEC PO SCH (08:32)
[2017-10-29] MEDS: LORATADINE 10 MG TAB PO SCH (08:32)
[2017-10-29] MEDS: guaiFENesin E.R. 600 MG TAB PO SCH ×2 (08:32→22:32)
[2017-10-29] MEDS: INSULIN ASPART SUPPLEMENTAL SCALE SQ SCH ×4 (08:33→22:30)
[2017-10-29] MEDS: SODIUM CHLORIDE 0.9% FLUSH 10 ML FLUSH IV FLUSH SCH ×2 (08:33→22:33)
[2017-10-29] MEDS: ACETAMINOPHEN 500 MG CPLT PO PRN ×2 (08:40→23:04)
[2017-10-29] MEDS: INSULIN DETEMIR 100 UNITS/ML VIAL SQ SCH ×2 (09:08→22:29)
--- NOTE | 2017-10-29 10:04 | HHI.PR ---
Subjective Remarks pt denies chest pain Objective Vital Signs Date Time Temp Pulse Resp B/P (MAP) Pulse Ox O2 Delivery O2 Flow Rate FiO2 10/29/17 09:23 99.4 106 26 88 10/29/17 09:21 88 10/29/17 07:47 100.4 106 28 108/59 (75) 90 10/29/17 06:00 110 10/29/17 05:00 112 10/29/17 04:00 100 10/29/17 04:00 97.7 101 20 112/74 (87) 94 10/29/17 03:00 104 10/29/17 02:00 98 10/29/17 01:00 100 10/29/17 00:00 98.5 107 20 132/68 (89) 95 10/29/17 00:00 100 10/28/17 23:00 100 10/28/17 22:00 104 10/28/17 21:00 110 10/28/17 20:00 113 10/28/17 20:00 99.3 109 20 121/65 (83) 94 10/28/17 18:00 87 10/28/17 17:03 96 21 10/28/17 17:00 81 10/28/17 16:00 81 10/28/17 15:00 82 10/28/17 15:00 97.9 72 20 100/55 (70) 96 10/28/17 14:00 92 10/28/17 13:00 76 10/28/17 12:00 76 10/28/17 11:00 98.0 90 20 96/58 (71) 92 10/28/17 11:00 75 I/O 10/28/17 10/28/17 10/28/17 10/29/17 10/29/17 10/29/17 07:00 15:00 23:00 07:00 15:00 23:00 Intake Total 420 ml 1200 ml 480 ml Output Total 820 ml 500 ml 1850 ml Balance -400 ml 700 ml -1370 ml Intake Oral 420 ml 1200 ml 480 ml Output Urine Total 820 ml 500 ml 1850 ml # Bowel Movements 0 0 VSS CHEST: CTA HEART: S1, S2,RRR ABD: ST, NT EXT: No edema Result Diagram: 10/27/17 1445 10/28/17 1150 Assessment and Plan Assessment and Plan pt denies chest pain. he feels he has a fever. he has Bronchitis and could be dveloping Pneumonia. He is stable cardiacwise. I will follow Esmer Tran MD Oct 29, 2017 10:04
--- NOTE | 2017-10-29 10:16 | HHI.PR ---
Subjective Remarks Follow-up for pneumonia/bronchitis/elevated troponins Patient stated that he feels better today. Positive for coughing. Shortness of breathing has improved but he is hypoxic satting at the 88%. Chest pain has improved with treatment. He stated he is less anxious today. Patient's nurse and Dr. Cash is at the bedside during part of the interview. Objective Vitals Vital Signs Date Time Temp Pulse Resp B/P (MAP) Pulse Ox O2 Delivery O2 Flow Rate FiO2 10/29/17 09:23 99.4 106 26 88 10/29/17 09:21 88 10/29/17 07:47 100.4 106 28 108/59 (75) 90 10/29/17 06:00 110 10/29/17 05:00 112 10/29/17 04:00 100 10/29/17 04:00 97.7 101 20 112/74 (87) 94 10/29/17 03:00 104 10/29/17 02:00 98 10/29/17 01:00 100 10/29/17 00:00 98.5 107 20 132/68 (89) 95 10/29/17 00:00 100 10/28/17 23:00 100 10/28/17 22:00 104 10/28/17 21:00 110 10/28/17 20:00 113 10/28/17 20:00 99.3 109 20 121/65 (83) 94 10/28/17 18:00 87 10/28/17 17:03 96 21 10/28/17 17:00 81 10/28/17 16:00 81 10/28/17 15:00 82 10/28/17 15:00 97.9 72 20 100/55 (70) 96 10/28/17 14:00 92 10/28/17 13:00 76 10/28/17 12:00 76 10/28/17 11:00 98.0 90 20 96/58 (71) 92 10/28/17 11:00 75 I/O 10/28/17 10/28/17 10/28/17 10/29/17 10/29/17 10/29/17 07:00 15:00 23:00 07:00 15:00 23:00 Intake Total 420 ml 1200 ml 480 ml Output Total 820 ml 500 ml 1850 ml Balance -400 ml 700 ml -1370 ml Intake Oral 420 ml 1200 ml 480 ml Output Urine Total 820 ml 500 ml 1850 ml # Bowel Movements 0 0 Result Diagram: 10/27/17 1445 10/28/17 1150 Imaging Last Impressions Chest X-Ray 10/28/17 0000 Signed Impressions: Service Date/Time: October 13:19 - CONCLUSION: Increased right lower lung consolidation. Harry Huertas MD Objective Remarks GENERAL: In no acute distress. CARDIOVASCULAR: Regular rate and rhythm without murmurs, gallops, or rubs. negative chest pain with palpation of the chest wall RESPIRATORY: Bilateral rhonchi. No accessory muscle use. GASTROINTESTINAL: Abdomen soft, non-tender, nondistended. MUSCULOSKELETAL: No cyanosis, or edema. BACK: Nontender without obvious deformity. No CVA tenderness. Medications and IVs Current Medications Sodium Chloride (NS Flush) 2 ml UNSCH PRN IVF FLUSH AFTER USING IV ACCESS; Start 10/27/17 at 11:15; Stop 10/27/17 at 14:50; Status DC Albuterol/ Ipratropium (Duoneb Neb) 1 ampule ONCE ONCE NEB Last administered on 10/27/17at 11:32; Start 10/27/17 at 11:30; Stop 10/27/17 at 11:31; Status DC Hydrocodone Bit/ Homatropine Methylb (Hycodan Liq) 5 ml NOW ONCE PO ; Start at 11:30; Stop 10/27/17 at 11:30; Status DC Lorazepam (Ativan) 1 mg ONCE ONCE PO Last administered on 10/27/17at 11:41; Start 10/27/17 at 11:30; Stop 10/27/17 at 11:31; Status DC Guaifenesin (Mucinex Er) 1,200 mg ONCE ONCE PO Last administered on 10/27/17at 11:42; Start 10/27/17 at 11:30; Stop 10/27/17 at 11:31; Status DC Insulin Aspart (NovoLOG INJ) 5 units ONCE ONCE SQ Last administered on at 15:10; Start 10/27/17 at 14:15; Stop 10/27/17 at 14:16; Status DC Aspirin (Aspirin Chew) 162 mg ONCE ONCE CHEW Last administered on 10/27/17at 15 :10; Start 10/27/17 at 14:15; Stop 10/27/17 at 14:16; Status DC Heparin Sodium (Porcine) (Heparin Inj) 4,000 units ONCE ONCE IV Last administered on 10/27/17at 15:47; Start 10/27/17 at 14:15; Stop 10/27/17 at 14:16 ; Status DC Heparin Sodium (Porcine) (Heparin Inj) 5,000 units UNSCH PRN IV APTT LESS THAN 25; Start 10/27/17 at 20:15; Stop 10/28/17 at 15:36; Status DC Heparin Sodium (Porcine) (Heparin Inj) 2,500 units UNSCH PRN IV APTT 25 TO 39; Start 10/27/17 at 20:15; Stop 10/28/17 at 15:36; Status DC Heparin Sodium/ Dextrose 250 ml @ 10 mls/hr TITRATE PRN IV Coagulation Management Last administered on 10/27/17at 15:49; Start 10/27/17 at 14:15; Stop 10/28/17 at 15:36; Status DC Sodium Chloride (NS Flush) 2 ml BID IV FLUSH Last administered on 10/29/17at 08: 33; Start 10/27/17 at 21:00 Sodium Chloride (NS Flush) 2 ml UNSCH PRN IV FLUSH FLUSH AFTER USING IV ACCESS ; Start 10/27/17 at 14:30 Nitroglycerin (Nitroglycerin 2% Oint) 1 inch Q6HR TOP Last administered on 10/29at 05:25; Start 10/27/17 at 18:00 Acetaminophen (Tylenol) 500 mg Q4H PRN PO HEADACHE Last administered on at 08:40; Start 10/27/17 at 14:30 Methylprednisolone Sodium Succinate (SoluMEDROL INJ) 40 mg Q6H IV PUSH Last administered on 10/29/17at 08:32; Start 10/27/17 at 15:00 Albuterol/ Ipratropium (Duoneb Neb) 1 ampule QID NEB NEB Last administered on 10/28/17at 20:33; Start 10/27/17 at 16:00 Albuterol Sulfate (Albuterol Concentrated Neb) 2.5 mg Q2HR NEB PRN NEB SOB/ WHEEZING; Start 10/27/17 at 14:30 Loratadine (Claritin) 10 mg DAILY PO Last administered on 10/29/17 08:32; Start 10/27/17 at 16:00 Azithromycin 500 mg/Sodium Chloride 250 ml @ 250 mls/hr Q24H IV ; Start at 14:45; Stop 10/27/17 at 14:45; Status DC Guaifenesin (Mucinex Er) 1,200 mg BID PO Last administered on 10/29/17at 08:32; Start 10/27/17 at 15:00 Alprazolam (Xanax) 0.25 mg HS PO Last administered on 10/28/17 21:19; Start at 21:00 Amiodarone HCl (Cordarone) 200 mg HS PO Last administered on 10/28/17 21:21; Start 10/27/17 at 21:00 Atorvastatin Calcium (Lipitor) 20 mg HS PO Last administered on 10/28/17at 21:20 ; Start 10/27/17 at 21:00 Clopidogrel Bisulfate (Plavix) 75 mg HS PO Last administered on 10/28/17at 21:20 ; Start 10/27/17 at 21:00 Metoprolol Tartrate (Lopressor) 50 mg BID PO Last administered on 10/29/17at 08: 32; Start 10/27/17 at 21:00 Ramipril (Altace) 2.5 mg HS PO Last administered on 10/28/17 21:20; Start at 21:00 Spironolactone (Aldactone) 25 mg HS PO Last administered on 10/28/17 21:19; Start 10/27/17 at 21:00 Levofloxacin/ Dextrose 100 ml @ 100 mls/hr Q24H IV Last administered on at 16:11; Start 10/27/17 at 16:00 Aspirin (Ecotrin Ec) 81 mg DAILY PO Last administered on 10/29/17at 08:32; Start 10/28/17 at 09:00 Dextrose (D50w (Vial) Inj) 50 ml UNSCH PRN IV PUSH HYPOGLYCEMIA-SEE COMMENTS; Start 10/27/17 at 15:00 Glucagon (Glucagon Inj) 1 mg UNSCH PRN OTHER HYPOGLYCEMIA-SEE COMMENTS; Start 10/27/17 at 15:00 Insulin Aspart (NovoLOG SUPPLEMENTAL SCALE) 1 ACHS SLIDING SCALE SQ Last administered on 10/29/17at 08:33; Start 10/27/17 at 17:00 Insulin Detemir (Levemir Inj) 10 units Q12HR SQ Last administered on 10/28/17at 08:55; Start 10/27/17 at 21:00; Stop 10/28/17 at 11:09; Status DC Insulin Detemir (Levemir Inj) 15 units Q12HR SQ ; Start 10/28/17 at 21:00; Stop 10/28/17 at 21:00; Status DC Insulin Detemir (Levemir Inj) 10 units ONCE ONCE SQ Last administered on at 11:15; Start 10/28/17 at 11:15; Stop 10/28/17 at 11:16; Status DC Acetaminophen/ Hydrocodone Bitart ([place] 5-325 Mg) 1 tab Q4H PRN PO pain>3 Last administered on 10/28/17at 19:08; Start 10/28/17 at 12:15 Lorazepam (Ativan) 1 mg Q8H PRN PO anxiety Last administered on 10/28/17at 13:46 ; Start 10/28/17 at 12:15 Furosemide (Lasix Inj) 20 mg ONCE ONCE IV PUSH Last administered on 10/28/17at 19:07; Start 10/28/17 at 19:00; Stop 10/28/17 at 19:01; Status DC Insulin Detemir (Levemir Inj) 20 units Q12HR SQ Last administered on 10/29/17at 09:08; Start 10/28/17 at 21:00 Insulin Aspart (NovoLOG INJ) 5 units ONCE ONCE SQ Last administered on at 01:35; Start 10/29/17 at 01:30; Stop 10/29/17 at 01:31; Status DC A/P Assessment and Plan This is a 57-year-old male with extensive past medical history including history of [place], coronary artery disease status post stent placement, type 2 diabetes, tobacco dependence who presented with shortness of breathing Acute respiratory failure with hypoxia -Occurred over the past 3 weeks with no improvement on azithromycin. Initial Chest x-ray shows mild positive fluid balance otherwise negative then a repeat chest x-ray was done on 10/29 due to worsening symptoms in which showed a right lower lobe consolidation. -Initially this was more due to COPD versus bronchitis versus reactive airway disease. Patient then developed pneumonia because taking shallow breaths. -Continue with Solu-Medrol, scheduled DuoNeb nebs, albuterol when necessary, Levaquin, Claritin and Mucinex. Monitor patient clinically. -Will get a incentive spirometry. Patient educated extensively about using incentive spirometry to help improve pneumonia at rest or symptoms. Atypical chest pain -Chest pain only occurs with cough. Troponin is elevated at 0.41 and is flat. EKG shows left bundle branch block which is stable from prior EKGs. Chest pain seems to be more pleuritic. Due to patient being high risk for a cardiovascular event will rule out ACS and which Cardizem enzymes are trending down. -Chest pain improved with pain medication. -Per Dr. Cash since patient's kidney function has improved he will consider cardiac catheterization. This was discussed with patient who stated he would think about it. Elevated troponin -See treatment as above. Acute on chronic renal disease -Prior creatinine was 1.6 on 03/22/2017. Today creatinine 1.79. -Continue to monitor. Strict ins and outs. Avoid nephrotoxins. History of atrial fibrillation -Patient is not on anticoagulation. He is high risk for cardiac embolic stroke. Patient does have a drilling field specialist Dr. Cash. Management/ recommendations per Dr. Cash. Type 2 diabetes -Patient stated that he was taking Levemir 30 units at night. -Blood sugars have improved today with morning sugars of 175. Continue with Levemir 20 units twice a day. Continue with insulin sliding scale moderate dose. -Hypoglycemia protocol. Continue to monitor her Accu-Cheks. Coronary artery disease status post stent placement, ischemic cardiomyopathy with AICD placement -Continue home medication. AICD already interrogated in ED no arrhythmias. DVT prophylaxis -Heparin Discharge Planning After treatment/improvement of patient's respiratory symptoms considering heart catheterization. Kavya Thomas MD Oct 29, 2017 10:16
[2017-10-29] MEDS: LEVOFLOXACIN 500 MG PREMIX INJ 100 ML IV SCH (14:13)
[2017-10-29] MEDS: ALPRAZolam 0.25 MG TAB PO SCH (22:31)
[2017-10-29] MEDS: ATORVASTATIN 20 MG TAB PO SCH (22:31)
[2017-10-29] MEDS: CLOPIDOGREL 75 MG TAB PO SCH (22:31)
[2017-10-29] MEDS: AMIODARONE 200 MG TAB PO SCH (22:31)
[2017-10-29] MEDS: LORazepam 1 MG TAB PO PRN (22:58)
[2017-10-30] VITALS (26 sets, daily range): BP systolic 94–164; BP diastolic 52–89; PULSE 88–118; RESP 18–20; TEMP 98.1–99.3; O2SAT 92–95
[2017-10-30] MEDS: methylPREDNISolone SOD SUCC 40 MG/1 ML VIAL IV PUSH SCH ×3 (03:21→21:18)
[2017-10-30] MEDS: ACETAMINOPHEN/HYDROcodone 325 MG/5 MG TAB PO PRN (05:31)
[2017-10-30 06:24] LABS: HEMATOCRIT 46.4 % (39.0-51.0); HEMOGLOBIN 16.5 GM/DL (13.0-17.0); MEAN CELL VOLUME 92.6 FL (80.0-100.0); MEAN CORPUSCULAR HGB CONC 35.6 % (32.0-36.0); MEAN PLATELET VOLUME 9.4 FL (7.0-11.0); PLATELET COUNT 195 TH/MM3 (150-450); RED BLOOD COUNT 5.02 MIL/MM3 (4.50-5.90); RED CELL DISTRIBUTION WIDTH 14.8 % (11.6-17.2); WHITE BLOOD COUNT 10.4 TH/MM3 (4.0-11.0)
[2017-10-30 07:08] LABS: BICARBONATE 25.2 MEQ/L (21.0-32.0); CALCIUM 9.9 MG/DL (8.5-10.1); CREATININE 1.54 MG/DL (0.60-1.30)
[2017-10-30] MEDS: RESP: ALBUTEROL 2.5 MG/IPRATROPIUM 0.5 MG NEB (SCH) NEB ×4 (07:52→20:57)
[2017-10-30] MEDS: guaiFENesin E.R. 600 MG TAB PO SCH ×2 (08:40→21:16)
[2017-10-30] MEDS: LORATADINE 10 MG TAB PO SCH (08:40)
[2017-10-30] MEDS: SODIUM CHLORIDE 0.9% FLUSH 10 ML FLUSH IV FLUSH SCH ×2 (08:40→21:17)
[2017-10-30] MEDS: INSULIN DETEMIR 100 UNITS/ML VIAL SQ SCH ×2 (08:40→21:00)
[2017-10-30] MEDS: ASPIRIN EC 81 MG TABEC PO SCH (08:40)
[2017-10-30] MEDS: METOPROLOL TARTRATE 50 MG TAB PO SCH ×2 (08:40→21:17)
[2017-10-30] MEDS: INSULIN ASPART SUPPLEMENTAL SCALE SQ SCH ×4 (08:46→21:00)
--- NOTE | 2017-10-30 12:32 | RADRPT ---
EXAM DATE/TIME: 10/30/2017 11:52 [facility] COMPARISON: CHEST PA & LAT, October 28, 2017, 13:19. INDICATIONS : Shortness of breath. Chest pain. MEDICAL HISTORY : Myocardial infarction. Congestive heart failure. SURGICAL HISTORY : Coronary artery stent. Defibrillation. ENCOUNTER: Initial ACUITY: 2 weeks PAIN SCORE: 9/10 LOCATION: Bilateral chest FINDINGS: AP upright view of the chest demonstrates significant cardiomegaly. Stable appearance of a dual-lead AICD device. Diffuse cephalization of pulmonary vasculature and adjacent perivascular hazy air space opacities. CONCLUSION: Radiographic findings consistent with worsening congestive heart failure and pulmonary edema. Ariela Martin MD on October 30, 2017 at 12:29 Board Certified Radiologist. This report was verified electronically.
--- NOTE | 2017-10-30 12:41 | HHI.PR ---
Subjective Remarks Follow-up for respiratory failure Patient will not wear supplemental oxygen as directed. He was put on a simple mask last night due to hypoxia. Currently on no oxygen. His sats seems to fluctuate a lot. Patient stated that he feels better in terms of his respiratory status. He stated breathing is better. He stated that he just wants to sleep and keeps coughing. Asking for cough suppressant. Remains afebrile. Deny any chest pain, palpitation. No other complaints. Patient's nurse at the bedside during the interview. Objective Vitals Vital Signs Date Time Temp Pulse Resp B/P (MAP) Pulse Ox O2 Delivery O2 Flow Rate FiO2 10/30/17 08:40 98.1 96 20 121/86 (98) 95 10/30/17 08:00 99 10/30/17 07:56 92 Nasal Cannula 5.00 10/30/17 06:00 108 10/30/17 05:00 108 10/30/17 04:00 102 10/30/17 04:00 99.3 90 20 138/52 (80) 92 10/30/17 03:00 100 10/30/17 02:00 98 10/30/17 01:00 94 10/30/17 00:00 99.0 118 20 164/89 (114) 93 10/30/17 00:00 103 10/29/17 23:00 118 10/29/17 22:52 93 Simple Mask 7.00 10/29/17 22:00 118 10/29/17 21:00 114 10/29/17 20:00 109 10/29/17 20:00 100.4 119 20 149/97 (114) 90 10/29/17 18:00 102 10/29/17 17:00 84 10/29/17 16:00 84 10/29/17 15:48 98.5 85 20 87/63 (71) 96 10/29/17 15:00 85 10/29/17 14:00 82 10/29/17 13:00 86 10/29/17 12:42 104/67 (79) I/O 10/29/17 10/29/17 10/29/17 10/30/17 10/30/17 10/30/17 07:00 15:00 23:00 07:00 15:00 23:00 Intake Total 480 ml 100 ml 580 ml 480 ml Output Total 1850 ml 600 ml 1450 ml Balance -1370 ml 100 ml -20 ml -970 ml Intake Oral 480 ml 580 ml 480 ml IV Total 100 ml Output Urine Total 1850 ml 600 ml 1450 ml # Bowel Movements 0 1 Result Diagram: 10/30/17 0600 10/30/17 0600 Imaging Last Impressions Chest X-Ray 10/28/17 0000 Signed Impressions: Service Date/Time: October 13:19 - CONCLUSION: Increased right lower lung consolidation. Harry Huertas MD Objective Remarks GENERAL: In no acute distress. CARDIOVASCULAR: Regular rate and rhythm without murmurs, gallops, or rubs. negative chest pain with palpation of the chest wall RESPIRATORY: Bilateral rhonchi with some scatter wheezing. No accessory muscle use. GASTROINTESTINAL: Abdomen soft, non-tender, nondistended. MUSCULOSKELETAL: No cyanosis, or edema. BACK: Nontender without obvious deformity. No CVA tenderness. Medications and IVs Current Medications Sodium Chloride (NS Flush) 2 ml UNSCH PRN IVF FLUSH AFTER USING IV ACCESS; Start 10/27/17 at 11:15; Stop 10/27/17 at 14:50; Status DC Albuterol/ Ipratropium (Duoneb Neb) 1 ampule ONCE ONCE NEB Last administered on 10/27/17at 11:32; Start 10/27/17 at 11:30; Stop 10/27/17 at 11:31; Status DC Hydrocodone Bit/ Homatropine Methylb (Hycodan Liq) 5 ml NOW ONCE PO ; Start at 11:30; Stop 10/27/17 at 11:30; Status DC Lorazepam (Ativan) 1 mg ONCE ONCE PO Last administered on 10/27/17at 11:41; Start 10/27/17 at 11:30; Stop 10/27/17 at 11:31; Status DC Guaifenesin (Mucinex Er) 1,200 mg ONCE ONCE PO Last administered on 10/27/17at 11:42; Start 10/27/17 at 11:30; Stop 10/27/17 at 11:31; Status DC Insulin Aspart (NovoLOG INJ) 5 units ONCE ONCE SQ Last administered on at 15:10; Start 10/27/17 at 14:15; Stop 10/27/17 at 14:16; Status DC Aspirin (Aspirin Chew) 162 mg ONCE ONCE CHEW Last administered on 10/27/17at 15 :10; Start 10/27/17 at 14:15; Stop 10/27/17 at 14:16; Status DC Heparin Sodium (Porcine) (Heparin Inj) 4,000 units ONCE ONCE IV Last administered on 10/27/17at 15:47; Start 10/27/17 at 14:15; Stop 10/27/17 at 14:16 ; Status DC Heparin Sodium (Porcine) (Heparin Inj) 5,000 units UNSCH PRN IV APTT LESS THAN 25; Start 10/27/17 at 20:15; Stop 10/28/17 at 15:36; Status DC Heparin Sodium (Porcine) (Heparin Inj) 2,500 units UNSCH PRN IV APTT 25 TO 39; Start 10/27/17 at 20:15; Stop 10/28/17 at 15:36; Status DC Heparin Sodium/ Dextrose 250 ml @ 10 mls/hr TITRATE PRN IV Coagulation Management Last administered on 10/27/17at 15:49; Start 10/27/17 at 14:15; Stop 10/28/17 at 15:36; Status DC Sodium Chloride (NS Flush) 2 ml BID IV FLUSH Last administered on 10/30/17at 08: 40; Start 10/27/17 at 21:00 Sodium Chloride (NS Flush) 2 ml UNSCH PRN IV FLUSH FLUSH AFTER USING IV ACCESS ; Start 10/27/17 at 14:30 Nitroglycerin (Nitroglycerin 2% Oint) 1 inch Q6HR TOP Last administered on 10/29at 05:25; Start 10/27/17 at 18:00; Stop 10/29/17 at 13:22; Status DC Acetaminophen (Tylenol) 500 mg Q4H PRN PO HEADACHE Last administered on at 23:04; Start 10/27/17 at 14:30 Methylprednisolone Sodium Succinate (SoluMEDROL INJ) 40 mg Q6H IV PUSH Last administered on 10/30/17at 08:40; Start 10/27/17 at 15:00 Albuterol/ Ipratropium (Duoneb Neb) 1 ampule QID NEB NEB Last administered on 10/30/17at 12:26; Start 10/27/17 at 16:00 Albuterol Sulfate (Albuterol Concentrated Neb) 2.5 mg Q2HR NEB PRN NEB SOB/ WHEEZING; Start 10/27/17 at 14:30 Loratadine (Claritin) 10 mg DAILY PO Last administered on 10/30/17at 08:40; Start 10/27/17 at 16:00 Azithromycin 500 mg/Sodium Chloride 250 ml @ 250 mls/hr Q24H IV ; Start at 14:45; Stop 10/27/17 at 14:45; Status DC Guaifenesin (Mucinex Er) 1,200 mg BID PO Last administered on 10/30/17at 08:40; Start 10/27/17 at 15:00 Alprazolam (Xanax) 0.25 mg HS PO Last administered on 10/29/17at 22:31; Start at 21:00 Amiodarone HCl (Cordarone) 200 mg HS PO Last administered on 10/29/17at 22:31; Start 10/27/17 at 21:00 Atorvastatin Calcium (Lipitor) 20 mg HS PO Last administered on 10/29/17at 22:31 ; Start 10/27/17 at 21:00 Clopidogrel Bisulfate (Plavix) 75 mg HS PO Last administered on 10/29/17at 22:31 ; Start 10/27/17 at 21:00 Metoprolol Tartrate (Lopressor) 50 mg BID PO Last administered on 10/30/17at 08: 40; Start 10/27/17 at 21:00 Ramipril (Altace) 2.5 mg HS PO Last administered on 10/28/17at 21:20; Start at 21:00; Status Future hold Spironolactone (Aldactone) 25 mg HS PO Last administered on 10/28/17at 21:19; Start 10/27/17 at 21:00; Status Future hold Levofloxacin/ Dextrose 100 ml @ 100 mls/hr Q24H IV Last administered on at 14:13; Start 10/27/17 at 16:00 Aspirin (Ecotrin Ec) 81 mg DAILY PO Last administered on 10/30/17at 08:40; Start 10/28/17 at 09:00 Dextrose (D50w (Vial) Inj) 50 ml UNSCH PRN IV PUSH HYPOGLYCEMIA-SEE COMMENTS; Start 10/27/17 at 15:00 Glucagon (Glucagon Inj) 1 mg UNSCH PRN OTHER HYPOGLYCEMIA-SEE COMMENTS; Start 10/27/17 at 15:00 Insulin Aspart (NovoLOG SUPPLEMENTAL SCALE) 1 ACHS SLIDING SCALE SQ Last administered on 10/30/17at 08:46; Start 10/27/17 at 17:00 Insulin Detemir (Levemir Inj) 10 units Q12HR SQ Last administered on 10/28/17at 08:55; Start 10/27/17 at 21:00; Stop 10/28/17 at 11:09; Status DC Insulin Detemir (Levemir Inj) 15 units Q12HR SQ ; Start 10/28/17 at 21:00; Stop 10/28/17 at 21:00; Status DC Insulin Detemir (Levemir Inj) 10 units ONCE ONCE SQ Last administered on at 11:15; Start 10/28/17 at 11:15; Stop 10/28/17 at 11:16; Status DC Acetaminophen/ Hydrocodone Bitart ([place] 5-325 Mg) 1 tab Q4H PRN PO pain>3 Last administered on 10/30/17at 05:31; Start 10/28/17 at 12:15 Lorazepam (Ativan) 1 mg Q8H PRN PO anxiety Last administered on 10/29/17at 22:58 ; Start 10/28/17 at 12:15 Furosemide (Lasix Inj) 20 mg ONCE ONCE IV PUSH Last administered on 10/28/17at 19:07; Start 10/28/17 at 19:00; Stop 10/28/17 at 19:01; Status DC Insulin Detemir (Levemir Inj) 20 units Q12HR SQ Last administered on 10/30/17at 08:40; Start 10/28/17 at 21:00 Insulin Aspart (NovoLOG INJ) 5 units ONCE ONCE SQ Last administered on at 01:35; Start 10/29/17 at 01:30; Stop 10/29/17 at 01:31; Status DC Furosemide (Lasix Inj) 20 mg DAILY IV PUSH ; Start 10/30/17 at 12:45; Status UNV A/P Assessment and Plan This is a 57-year-old male with extensive past medical history including history of [place], coronary artery disease status post stent placement, type 2 diabetes, tobacco dependence who presented with shortness of breathing Acute respiratory failure with hypoxia -Occurred over the past 3 weeks with no improvement on azithromycin. Initial Chest x-ray shows mild positive fluid balance otherwise negative then a repeat chest x-ray was done on 10/29 due to worsening symptoms in which showed a right lower lobe consolidation. -Initially this was more due to COPD versus bronchitis versus reactive airway disease. Patient then developed pneumonia because taking shallow breaths. -Decrease Solu-Medrol, scheduled DuoNeb nebs, albuterol when necessary, Levaquin , Claritin and Mucinex. Monitor patient clinically. -Patient noncompliant with treatment. He is not using his incentive spirometry or walking as directed. Stat chest x-ray repeated which showed pulmonary congestion. BNP was done yesterday with was to 224. Will give Lasix IV and monitor clinically. -Education given to patient noncompliance. Patient told if he is noncompliant with treatment he may not get better and symptoms may worsen. Patient stated he understood. Atypical chest pain -Chest pain only occurs with cough. Troponin is elevated at 0.41 and is flat. EKG shows left bundle branch block which is stable from prior EKGs. Chest pain seems to be more pleuritic. Due to patient being high risk for a cardiovascular event will rule out ACS and which Cardizem enzymes are trending down. -Chest pain improved with pain medication. -Per Dr. Cash since patient's kidney function has improved he will consider cardiac catheterization. This was discussed with patient who stated he would think about it. Elevated troponin -See treatment as above. Acute on chronic renal disease -Prior creatinine was 1.6 on 03/22/2017. Today creatinine 1.54. -Continue to monitor. Strict ins and outs. Avoid nephrotoxins. History of atrial fibrillation -Patient is not on anticoagulation. He is high risk for cardiac embolic stroke. 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 Cash. Management/ recommendations per Dr. Cash. Type 2 diabetes -Patient stated that he was taking Levemir 30 units at night. -Blood sugars have improved today with morning sugars of 175. Increase with Levemir 22 units twice a day. Continue with insulin sliding scale moderate dose. -Hypoglycemia protocol. Continue to monitor her Accu-Cheks. Coronary artery disease status post stent placement, ischemic cardiomyopathy with AICD placement -Continue home medication. AICD already interrogated in ED no arrhythmias. DVT prophylaxis -Heparin Discharge Planning After treatment/improvement of patient's respiratory symptoms considering heart catheterization. Kavya Thomas MD Oct 30, 2017 12:41
[2017-10-30] MEDS: FUROSEMIDE 20 MG/2 ML VIAL IV PUSH SCH (13:04)
[2017-10-30] MEDS: guaiFENesin/CODEINE SYRUP 200 MG/20 MG/10 ML CUP PO PRN (13:06)
[2017-10-30] MEDS: LEVOFLOXACIN 500 MG PREMIX INJ 100 ML IV SCH (14:57)
[2017-10-30] MEDS ORDERED: INSULIN HUMAN REGULAR 1,000 UNITS/10 ML VIAL SQ ONE (20:45)
[2017-10-30] MEDS: CLOPIDOGREL 75 MG TAB PO SCH (21:17)
[2017-10-30] MEDS: RAMIPRIL 2.5 MG CAP PO SCH (21:17)
[2017-10-30] MEDS: AMIODARONE 200 MG TAB PO SCH (21:17)
[2017-10-30] MEDS: ALPRAZolam 0.25 MG TAB PO SCH (21:17)
[2017-10-30] MEDS: ATORVASTATIN 20 MG TAB PO SCH (21:17)
[2017-10-30] MEDS: SPIRONOLACTONE 25 MG TAB PO SCH (21:17)
[2017-10-30] MEDS ORDERED: INSULIN HUMAN REGULAR 1,000 UNITS/10 ML VIAL IV PUSH ONE ×2 (21:30→23:00)
[2017-10-31] VITALS (13 sets, daily range): BP systolic 91–128; BP diastolic 60–75; PULSE 76–97; RESP 20–22; TEMP 97.3–98.9; O2SAT 88–95
[2017-10-31] MEDS ORDERED: INSULIN ASPART 1,000 UNITS/10 ML VIAL SQ ONE (00:30)
[2017-10-31] MEDS: guaiFENesin/CODEINE SYRUP 200 MG/20 MG/10 ML CUP PO PRN ×3 (00:39→08:23)
[2017-10-31] MEDS: INSULIN ASPART SUPPLEMENTAL SCALE SQ SCH ×3 (04:24→13:56)
[2017-10-31] MEDS: LORATADINE 10 MG TAB PO SCH (07:53)
[2017-10-31] MEDS: ASPIRIN EC 81 MG TABEC PO SCH (07:53)
[2017-10-31] MEDS: guaiFENesin E.R. 600 MG TAB PO SCH (07:54)
[2017-10-31] MEDS: methylPREDNISolone SOD SUCC 40 MG/1 ML VIAL IV PUSH SCH (07:54)
[2017-10-31] MEDS: FUROSEMIDE 20 MG/2 ML VIAL IV PUSH SCH (07:54)
[2017-10-31 07:55] LABS: HEMATOCRIT 45.8 % (39.0-51.0); HEMOGLOBIN 15.8 GM/DL (13.0-17.0); MEAN CELL VOLUME 94.7 FL (80.0-100.0); MEAN CORPUSCULAR HEMOGLOBIN 32.6 PG (27.0-34.0); MEAN CORPUSCULAR HGB CONC 34.4 % (32.0-36.0); MEAN PLATELET VOLUME 8.5 FL (7.0-11.0); PLATELET COUNT 186 TH/MM3 (150-450); RED BLOOD COUNT 4.84 MIL/MM3 (4.50-5.90); RED CELL DISTRIBUTION WIDTH 14.6 % (11.6-17.2); WHITE BLOOD COUNT 7.7 TH/MM3 (4.0-11.0)
[2017-10-31] MEDS: SODIUM CHLORIDE 0.9% FLUSH 10 ML FLUSH IV FLUSH SCH (07:55)
[2017-10-31] MEDS: METOPROLOL TARTRATE 50 MG TAB PO SCH (07:55)
[2017-10-31] MEDS: INSULIN DETEMIR 100 UNITS/ML VIAL SQ SCH (07:55)
[2017-10-31 08:02] LABS: BICARBONATE 25.8 MEQ/L (21.0-32.0); CALCIUM 9.4 MG/DL (8.5-10.1); CREATININE 1.42 MG/DL (0.60-1.30)
[2017-10-31] MEDS: RESP: ALBUTEROL 2.5 MG/IPRATROPIUM 0.5 MG NEB (SCH) NEB ×2 (08:50→11:49)
[2017-10-31] MEDS ORDERED: PRED5PAK PO (13:04)
[2017-10-31] MEDS ORDERED: FURO1TAB62 PO (13:04)
[2017-10-31] MEDS ORDERED: guaiFEN-COD 200-20 MG/10ML LIQ PO (13:04)
[2017-10-31] MEDS ORDERED: ECASA81 PO (13:04)
[2017-10-31] MEDS ORDERED: LEVA500T33 PO (13:04)
[2017-10-31] MEDS ORDERED: LEVEMIR SQ (13:04)
[2017-10-31] MEDS ORDERED: guaiFENesin ER PO (13:04)
[2017-10-31] MEDS ORDERED: HYDR-3516 PO (13:04)
[2017-10-31] MEDS ORDERED: VENTAER INH (13:04)
[2017-10-31] MEDS ORDERED: CLAR10TA7 PO (13:04)
--- NOTE | 2017-10-31 13:07 | HHI.DCPOC ---
Discharge Care Plan Diagnosis: (1) URI (upper respiratory infection) (2) Uncontrolled diabetes mellitus (3) Elevated troponin I level (4) CHAVO (acute kidney injury) (5) COPD exacerbation Goals to Promote Your Health * To prevent worsening of your condition and complications * To maintain your health at the optimal level Directions to Meet Your Goals Take your medications as prescribed Follow your dietary instruction Follow activity as directed Keep your appointments as scheduled Take your immunizations and boosters as scheduled If your symptoms worsen call your PCP, if no PCP go to Urgent Care Center or Emergency Room Smoking is Dangerous to Your Health. Avoid second hand smoke Call the 24-hour hour crisis hotline for domestic abuse at Kavya Thomas MD Oct 31, 2017 13:07
--- NOTE | 2017-10-31 13:08 | HHI.DS ---
Discharge Summary Admission Date Oct 27, 2017 at 14:19 Admitting Diagnosis NSTEMI Brief History - From Admission This is a 57-year-old male with history of [place], coronary disease status post stent placement, ischemic cardiopathy status post AICD, history of atrophic fibrillation, type 2 diabetes, and tobacco dependence who presented with shortness of breathing and chest pain. Patient stated that 3 weeks ago he had an upper respiratory infection in which he has shortness of breathing that occur after bouts of cough. Patient stated that this will occur about every 10 minutes. Patient went to see his primary care physician in which she was put on azithromycin. Patient status symptoms did not improve and worsen so he went to the emergency department. Patient does associate the shortage of breathing with mild chest pain only with cough or deep inspiration. Denied any fevers or chills. He stated that he has a lot of chest congestion and unable to cough up the congestion. Patient also stated that he was on a blood thinner but he is not able to give me the name of the blood thinner. All other review system reviewed and negative. CBC/BMP: 10/31/17 0717 10/31/17 0717 Significant Findings Laboratory Tests Test 10/28/17 14:54 10/30/17 06:00 10/30/17 17:43 10/31/17 07:17 Activated Partial Thromboplast Time 46.4 SEC (24.3-30.1) Blood Urea Nitrogen 39 MG/DL (7-18) 43 MG/DL (7-18) Creatinine 1.54 MG/DL (0.60-1.30) 1.42 MG/DL (0.60-1.30) Random Glucose 157 MG/DL (74-106) 433 MG/DL (74-106) 238 MG/DL (74-106) Sodium Level 126 MEQ/L (136-145) 128 MEQ/L (136-145) Potassium Level 5.4 MEQ/L (3.5-5.1) Chloride Level 92 MEQ/L (98-107) 94 MEQ/L (98-107) Estimat Glomerular Filtration Rate 47 ML/MIN (>89) 51 ML/MIN (>89) B-Type Natriuretic Peptide 244 PG/ML (0-100) PE at Discharge GENERAL: In no acute distress. CARDIOVASCULAR: Regular rate and rhythm without murmurs, gallops, or rubs. negative chest pain with palpation of the chest wall RESPIRATORY: Bilateral rhonchi with some scatter wheezing. No accessory muscle use. GASTROINTESTINAL: Abdomen soft, non-tender, nondistended. MUSCULOSKELETAL: No cyanosis, or edema. BACK: Nontender without obvious deformity. No CVA tenderness. Pt Condition on Discharge: Stable Discharge Disposition: Discharge Home Discharge Instructions DIET: Follow Instructions for: Heart Healthy Diet, Diabetic Diet Additional Diet Instructions: Fluid restriction <2L of fluid Activities you can perform: Regular-No Restrictions Kavya Thomas MD Oct 31, 2017 13:08
== END 2017-10-31 14:47 | disposition home or self-care (01) | DRG 190 ==
LOC: NEPE 10:37 → NEDA 14:19 → HCPC 16:06 → HCIS 10-28 18:41
PROVIDERS: ADMIT Family Medicine; ATTEND Family Medicine
DX: J44.1 Chronic obstructive pulmonary disease with (acute) exacerbation (principal); J96.01 Acute respiratory failure with hypoxia; I50.23 Acute on chronic systolic (congestive) heart failure; J18.9 Pneumonia, unspecified organism; J44.0 Chronic obstructive pulmonary disease with (acute) lower respiratory infection; E11.22 Type 2 diabetes mellitus with diabetic chronic kidney disease; I13.0 Hypertensive heart and chronic kidney disease with heart failure and stage 1 through stage 4 chronic kidney disease, or unspecified chronic kidney disease; N17.9 Acute kidney failure, unspecified; N18.9 Chronic kidney disease, unspecified; J06.9 Acute upper respiratory infection, unspecified; E11.65 Type 2 diabetes mellitus with hyperglycemia; Z79.4 Long term (current) use of insulin; I25.5 Ischemic cardiomyopathy; I48.91 Unspecified atrial fibrillation; Z95.810 Presence of automatic (implantable) cardiac defibrillator; I25.10 Atherosclerotic heart disease of native coronary artery without angina pectoris; Z95.5 Presence of coronary angioplasty implant and graft; I25.2 Old myocardial infarction; Z79.02 Long term (current) use of antithrombotics/antiplatelets; E78.5 Hyperlipidemia, unspecified; M10.9 Gout, unspecified; G47.33 Obstructive sleep apnea (adult) (pediatric); F17.210 Nicotine dependence, cigarettes, uncomplicated; Z91.19 Patient's noncompliance with other medical treatment and regimen
CPT/HCPCS: 71045; 71046; 80048; 80053; 80061; 82550; 82947; 82948; 83036; 83690; 83735; 83880; 84484; 85025; 85027; 85610; 85730; 93005; 93306; 94150; 94618; 94640; 94664; J1644; J1815; J1940; J1956; J2920

== ENCOUNTER 2017-12-05 14:20 | Observation (INO) | payer MEDICARE ==
[~2017-12-05] VITALS: Ht 177.8 cm; Wt 95.0 kg
[2017-12-05] VITALS (8 sets, daily range): BP systolic 113–143; BP diastolic 74–99; PULSE 67–80; RESP 16–25; TEMP 97.2–98.4; O2SAT 90–97
[~2017-12-05 14:20] MED LIST changes: -AZIT250T3 PO; +CLAR10TA7 PO; +ECASA81 PO; +FURO1TAB62 PO; +HYDR-3516 PO; -INSU1INJ5 SQ; +LEVA500T33 PO; +LEVEMIR SQ; +PRED5PAK PO; +VENTAER INH; +guaiFEN-COD 200-20 MG/10ML LIQ PO; +guaiFENesin ER PO
[2017-12-05 15:15] LABS: AUTOMATED NEUTROPHIL # 6.3 TH/MM3 (1.8-7.7); BASOPHIL # 0.1 TH/MM3 (0-0.2); BASOPHIL % 0.7 % (0.0-2.0); EOSINOPHIL % 0.3 % (0.0-4.0); HEMATOCRIT 41.3 % (39.0-51.0); HEMOGLOBIN 14.3 GM/DL (13.0-17.0); LYMPH % 25.1 % (9.0-44.0); LYMPHOCYTE # 2.4 TH/MM3 (1.0-4.8); MEAN CELL VOLUME 95.8 FL (80.0-100.0); MEAN CORPUSCULAR HEMOGLOBIN 33.2 PG (27.0-34.0); MEAN CORPUSCULAR HGB CONC 34.7 % (32.0-36.0); MEAN PLATELET VOLUME 7.6 FL (7.0-11.0); MONO % 7.6 % (0.0-8.0); MONOCYTE # 0.7 TH/MM3 (0-0.9); NEUT % 66.3 % (16.0-70.0); PLATELET COUNT 277 TH/MM3 (150-450); RED BLOOD COUNT 4.32 MIL/MM3 (4.50-5.90); RED CELL DISTRIBUTION WIDTH 16.3 % (11.6-17.2); WHITE BLOOD COUNT 9.5 TH/MM3 (4.0-11.0)
--- NOTE | 2017-12-05 15:17 | RADRPT ---
EXAM DATE/TIME: 12/05/2017 15:08 [facility] COMPARISON: CHEST SINGLE AP, October 27, 2017, 11:34 INDICATIONS : Chest pressure, short of breath MEDICAL HISTORY : Myocardial infarction. Congestive heart failure. SURGICAL HISTORY : Coronary artery stent. Defibrillation ENCOUNTER: Initial ACUITY: 1 day PAIN SCORE: 0/10 LOCATION: chest FINDINGS: There is cardiomegaly. Patchy left lower lobe airspace disease. No effusion. Osseous structures are i ntact. Pacer device again seen. CONCLUSION: Left lower lobe airspace disease. Gualberto Cohen MD on December 05, 2017 at 15:14 Board Certified Radiologist. This report was verified electronically.
[2017-12-05 15:26] LABS: INTERNATIONAL NORMALIZED RATIO 1.1 RATIO; PROTHROMBIN TIME - PATIENT 11.2 SEC (9.8-11.6)
[2017-12-05 16:08] LABS: BICARBONATE 26.7 MEQ/L (21.0-32.0); CALCIUM 8.9 MG/DL (8.5-10.1); CREATININE 1.37 MG/DL (0.60-1.30); MAGNESIUM 1.8 MG/DL (1.5-2.5)
[2017-12-05 16:10] LABS: TROPONIN I 0.08 NG/ML (0.02-0.05)
[2017-12-05] MEDS: NITROGLYCERIN 0.4 MG SL 25 TABS/BTL SL SCH ×3 (16:20→16:30)
[2017-12-05] MEDS ORDERED: SENNOSIDES 8.6 MG TAB PO PRN (16:30)
[2017-12-05] MEDS ORDERED: BISACODYL 10 MG SUPP RECTAL PRN (16:30)
[2017-12-05] MEDS ORDERED: ACETAMINOPHEN 325 MG TAB PO PRN (16:30)
[2017-12-05] MEDS ORDERED: MAGNESIUM HYDROXIDE SUSP 30 ML CUP PO PRN (16:30)
[2017-12-05] MEDS ORDERED: SODIUM CHLORIDE 0.9% FLUSH 10 ML FLUSH IV FLUSH PRN (16:30)
[2017-12-05] MEDS ORDERED: SODIUM CHLOR 0.45% 1000 ML INJ 1,000 ML IV SCH (16:30)
[2017-12-05] MEDS ORDERED: NALOXONE HCL 0.4 MG/ML AMP IV PUSH PRN (16:30)
[2017-12-05] MEDS ORDERED: ONDANSETRON HCL 4 MG/2 ML VIAL IVP PRN (16:30)
--- NOTE | 2017-12-05 16:36 | PD ---
HPI Chief Complaint: Chest Pain Time Seen by Provider: 14:41 Travel History International Travel<30 days: No Contact w/Intl Traveler<30days: No Traveled to known affect area: No History of Present Illness HPI 57yo M with PMH of PA, CAD s/p stent, ischemic cardiopathy s/p AICD, afib, DM presents to the ED with c/o feeling of lightheadedness, nausea, chest pressure and near syncope an hour prior to arrival while doing dishes. Associated with sob but pt is always sob. +Cough. Denies any fever, vomiting, abdominal pain, focal weakness or numbness. Pt follows with [facility] master Dr. Tran. Pt said he had PA a few years ago and this feels just like it. Pt was admitted 10/27- for copd vs. bronchitis and had elevated troponin 0.41. Pt had CHAVO at the time and Dr. Tran thought elevated troponin may be related to renal function but offered cardiac cath and ended up medically managing patient. PFSH Past Medical History Hx Anticoagulant Therapy: Yes Arthritis: No Asthma: No Autoimmune Disease: No Blood Disorders: No Anxiety: Yes Depression: No Heart Rhythm Problems: Yes Cancer: No Cardiac Catheterization: Yes (X 3) Cardiovascular Problems: Yes (CHF/ STENTS) High Cholesterol: Yes Chemotherapy: No Chest Pain: No Congestive Heart Failure: Yes COPD: Yes Cerebrovascular Accident: No Diabetes: Yes Patient Takes Glucophage: No Diminished Hearing: No Endocrine: No GERD: Yes Genitourinary: Yes Hiatal Hernia: No Hypertension: Yes Immune Disorder: No Kidney Stones: No Musculoskeletal: Yes Neurologic: No Psychiatric: No Reproductive: No Respiratory: Yes Immunizations Current: Yes Migraines: No Myocardial Infarction: Yes Radiation Therapy: No Renal Failure: No Seizures: No Sickle Cell Disease: No Sleep Apnea: Yes (does not wear cpap) Thyroid Disease: No Ulcer: No PNEUMOCCOCAL Vaccine (Year): 2008 Past Surgical History Abdominal Surgery: Yes AICD: Yes Appendectomy: Yes Cardiac Surgery: Yes (DEFIB-[facility] JANUARY 2016) Coronary Stent: Yes Ear Surgery: No Endocrine Surgery: No Eye Surgery: No Genitourinary Surgery: No Gynecologic Surgery: No Insulin Pump: No Joint Replacement: No Oral Surgery: Yes (SINUS SURGERY) Pacemaker: No Thoracic Surgery: No Other Surgery: Yes Social History Alcohol Use: No Tobacco Use: Yes (1/2 PPD) Substance Use: No Allergies-Medications (Allergen,Severity, Reaction): Coded Allergies: morphine (Unverified Adverse Reaction, Unknown, HEADRUSH, 10/27/17) Reported Meds & Prescriptions Reported Meds & Active Scripts Active Ventolin Hfa 18 GM Inh (Albuterol Sulfate) 90 Mcg/Act Aer 2 Puff INH Q4H PRN Levemir Inj (Insulin Detemir) 1,000 unit/ 10 ML Vial 25 Units SQ Q12HR Do not mix with any other Insulin. Aspirin DR (Aspirin) 81 Mg Tabdr 81 Mg PO DAILY Novolog Flexpen Inj (Insulin Aspart) 300 Unit/3 Ml Pen 1 Units SQ ACHS PRN 30 Days Less than 70 No Insulin 150-199 1 unit 200-249 3 units 250-299 5 units 300-349 7 units Greater than 349 9 units and call physician Glucocom Test Strips (Blood Glucose Test Strips) 1 Ivory Ivory 1 Ea .ROUTE DIRECTED Lancets 1 Mis Mis 1 Ea .ROUTE DIRECTED Glucocom Blood Glucose Mo W/Device (Device) 1 Kit Kit 1 Kit .ROUTE DIRECTED Reported Potassium Chloride ER (Potassium Chloride) 20 Meq Tab 20 Meq PO DAILY Lasix (Furosemide) 40 Mg Tab 40 Mg PO DAILY Xanax (Alprazolam) 0.5 Mg Tab 0.5 Mg PO HS PRN Atorvastatin (Atorvastatin Calcium) 20 Mg Tab 20 Mg PO HS Plavix (Clopidogrel Bisulfate) 75 Mg Tab 75 Mg PO HS Metoprolol Tartrate 50 Mg Tab 50 Mg PO BID Spironolactone 25 Mg Tab 25 Mg PO HS Ramipril 2.5 Mg Cap 2.5 Mg PO HS Amiodarone (Amiodarone HCl) 200 Mg Tab 200 Mg PO HS Review of Systems Except as stated in HPI: all other systems reviewed are Neg Physical Exam Narrative GENERAL: 57yo M in mild distress. SKIN: Focused skin assessment warm/dry. HEAD: Atraumatic. Normocephalic. EYES: Pupils equal and round. No scleral icterus. No injection or drainage. ENT: No nasal bleeding or discharge. Mucous membranes pink and moist. NECK: Trachea midline. No JVD. CARDIOVASCULAR: Regular rate and rhythm. No murmur appreciated. RESPIRATORY: No accessory muscle use. Crackles bilateral bases. GASTROINTESTINAL: Abdomen soft, non-tender, nondistended. MUSCULOSKELETAL: No obvious deformities. No clubbing. No cyanosis. +Bilateral lower extremity edema. NEUROLOGICAL: Awake and alert. No obvious cranial nerve deficits. Motor grossly within normal limits. Normal speech. PSYCHIATRIC: Appropriate mood and affect; insight and judgment normal. Data Data Last Documented VS Vital Signs Date Time Temp Pulse Resp B/P (MAP) Pulse Ox O2 Delivery O2 Flow Rate FiO2 12/05/17 16:31 68 16 121/82 (95) 96 Nasal Cannula 2.00 12/05/17 14:35 97.9 Orders Orders Basic Metabolic Panel (Bmp) (12/05/17 14:55) Complete Blood Count With Diff (12/05/17 14:55) Magnesium (Mg) (12/05/17 14:55) Prothrombin Time / Inr (Pt) (12/05/17 14:55) Act Partial Throm Time (Ptt) (12/05/17 14:55) Troponin I (12/05/17 14:55) Chest, Single Ap (12/05/17 14:55) Electrocardiogram (12/05/17 14:25) Nitroglycerin Sl (Nitrostat Sl) (12/05/17 16:15) Place In Observation (12/05/17 ) Vital Signs (Adult) Q4H (12/05/17 16:30) Activity Bed Rest (12/05/17 16:30) Circular Knitter / Telemetry .CONTINUOUS (12/05/17 16:30) Intake + Output PATRICIA.QSHIFT (12/05/17 16:30) Diet Npo (12/05/17 Dinner) Sodium Chlor 0.45% 1000 Ml Inj (1/2 Ns 1 (12/05/17 16:30) Sodium Chloride 0.9% Flush (Ns Flush) (12/05/17 16:30) Sodium Chloride 0.9% Flush (Ns Flush) (12/05/17 21:00) Acetaminophen (Tylenol) (12/05/17 16:30) Ondansetron Inj (Zofran Inj) (12/05/17 16:30) Scd Bilateral/Knee High PATRICIA.BID (12/05/17 16:30) Naloxone Inj (Narcan Inj) (12/05/17 16:30) Magnesium Hydroxide Liq (Milk Of Magnesi (12/05/17 16:30) Sennosides (Senokot) (12/05/17 16:30) Bisacodyl Supp (Dulcolax Supp) (12/05/17 16:30) Labs Laboratory Tests Test 12/05/17 15:00 12/05/17 15:33 White Blood Count 9.5 TH/MM3 Red Blood Count 4.32 MIL/MM3 Hemoglobin 14.3 GM/DL Hematocrit 41.3 % Mean Corpuscular Volume 95.8 FL Mean Corpuscular Hemoglobin 33.2 PG Mean Corpuscular Hemoglobin Concent 34.7 % Red Cell Distribution Width 16.3 % Platelet Count 277 TH/MM3 Mean Platelet Volume 7.6 FL Neutrophils (%) (Auto) 66.3 % Lymphocytes (%) (Auto) 25.1 % Monocytes (%) (Auto) 7.6 % Eosinophils (%) (Auto) 0.3 % Basophils (%) (Auto) 0.7 % Neutrophils # (Auto) 6.3 TH/MM3 Lymphocytes # (Auto) 2.4 TH/MM3 Monocytes # (Auto) 0.7 TH/MM3 Eosinophils # (Auto) 0.0 TH/MM3 Basophils # (Auto) 0.1 TH/MM3 CBC Comment DIFF FINAL Differential Comment Prothrombin Time 11.2 SEC Prothromb Time International Ratio 1.1 RATIO Activated Partial Thromboplast Time 31.5 SEC Blood Urea Nitrogen 25 MG/DL Creatinine 1.37 MG/DL Random Glucose 129 MG/DL Calcium Level 8.9 MG/DL Magnesium Level 1.8 MG/DL Sodium Level 137 MEQ/L Potassium Level MEQ/L Chloride Level 105 MEQ/L Carbon Dioxide Level 26.7 MEQ/L Anion Gap 5 MEQ/L Estimat Glomerular Filtration Rate 54 ML/MIN Troponin I 0.08 NG/ML [facility] Medical Decision Making Medical Screen Exam Complete: Yes Emergency Medical Condition: Yes Interpretation(s) EKG: NSR 68bpm. LAD. LBBB. TWI I, aVL, V6. No concordance. Differential Diagnosis ACS vs. valvular pathology vs. CHF Narrative Course 57yo M with multiple comorbidities here with c/o chest pressure and episode of near syncope while washing dishes. Labs reviewed, no leukocytosis. H/H normal. BUN/creatinine elevated at 25/1.37 which is at baseline. Troponin is elevated at 0.08, may be secondary to fluid overload but will do serial EKG and cardiac enzymes given pt's symptoms and cardiac risk factor. CXR showed left lower lobe airspace disease. Will give aspirin and sublingual nitro PRN chest pain. Discussed with Dr. Thomas and accepted to her service. Diagnosis Primary Impression: Near syncope Additional Impression: Chest pain Qualified Codes: R07.9 - Chest pain, unspecified Admitting Information Admitting Physician Requests: Observation Diana Kumari DO Dec 05, 2017 16:36
[2017-12-05] MEDS ORDERED: POTA-163 PO (16:38)
[2017-12-05] MEDS ORDERED: FURO1TAB60 PO (16:38)
[2017-12-05] MEDS ORDERED: ALPR.5 PO (16:38)
[2017-12-05] MEDS ORDERED: ASPIRIN 325 MG TAB PO ONE (16:45)
--- NOTE | 2017-12-05 17:58 | HHI.HP ---
[facility] Service [facility] Primary Care Physician Unknown Admission Diagnosis Near syncope, elevated troponin Diagnoses: Chief Complaint: Near syncope and shortness of breathing Travel History International Travel<30 Days: No Contact w/Intl Traveler <30 Da: No Traveled to Known Affected Are: No History of Present Illness This is a 57-year-old male past medical history of coronary artery disease, ischemic cardiomyopathy status post AICD, chronic kidney disease who presented with near syncope and shortness of breathing. Patient was admitted to the hospital about 1 month ago due to elevated troponins and bronchitis. During that admission patient refused cardiac catheterization, his construction person Dr. Ruelas. Patient stated that since he was discharged he felt like he continued to have shortness of breathing. Shortness of breathing due to exertion. He denies any other upper respiratory symptoms except for a dry cough. Patient stated that he did see Dr. Landin as outpatient he was told that the dry cough most likely secondary to CHF. Patient stated that today when he was standing he felt like he was going to pass out. He stated that this lasted for a few seconds. He felt nauseous at that time. Patient stated that this happened before and he was very concerned so he went to the emergency department. During this episode he denies any chest pain, palpitation, or any loss of consciousness. Patient feels like he has never gotten better since he was discharged. Denies any lower extremity swelling. All other review of system reviewed and negative. Past Family Social History Past Medical History Cardiomyopathy Chronic kidney disease Chronic systolic congestive heart failure History myocardial infarction Coronary artery disease Hypertension Hyperlipidemia Gout Obstructive sleep apnea History of atrial fibrillation Type 2 diabetes insulin-dependent Past Surgical History Cardiac catheterization with stenting AICD placement Left tibia/fibular repair Reported Medications Reported Meds & Active Scripts Active Ventolin Hfa 18 GM Inh (Albuterol Sulfate) 90 Mcg/Act Aer 2 Puff INH Q4H PRN Levemir Inj (Insulin Detemir) 1,000 unit/ 10 ML Vial 25 Units SQ Q12HR Do not mix with any other Insulin. Aspirin DR (Aspirin) 81 Mg Tabdr 81 Mg PO DAILY Novolog Flexpen Inj (Insulin Aspart) 300 Unit/3 Ml Pen 1 Units SQ ACHS PRN 30 Days Less than 70 No Insulin 150-199 1 unit 200-249 3 units 250-299 5 units 300-349 7 units Greater than 349 9 units and call physician Glucocom Test Strips (Blood Glucose Test Strips) 1 Ivory Ivory 1 Ea .ROUTE DIRECTED Lancets 1 Mis Mis 1 Ea .ROUTE DIRECTED Glucocom Blood Glucose Mo W/Device (Device) 1 Kit Kit 1 Kit .ROUTE DIRECTED Reported Potassium Chloride ER (Potassium Chloride) 20 Meq Tab 20 Meq PO DAILY Lasix (Furosemide) 40 Mg Tab 40 Mg PO DAILY Xanax (Alprazolam) 0.5 Mg Tab 0.5 Mg PO HS PRN Atorvastatin (Atorvastatin Calcium) 20 Mg Tab 20 Mg PO HS Plavix (Clopidogrel Bisulfate) 75 Mg Tab 75 Mg PO HS Metoprolol Tartrate 50 Mg Tab 50 Mg PO BID Spironolactone 25 Mg Tab 25 Mg PO HS Ramipril 2.5 Mg Cap 2.5 Mg PO HS Amiodarone (Amiodarone HCl) 200 Mg Tab 200 Mg PO HS Allergies: Coded Allergies: morphine (Unverified Adverse Reaction, Unknown, HEADRUSH, 10/27/17) Active Ordered Medications Current Medications Nitroglycerin (Nitrostat Sl) 0.4 mg Q5M SL Last administered on 12/05/17at 16:30 ; Start 12/05/17 at 16:15; Stop 12/05/17 at 16:26; Status DC Sodium Chloride 1,000 ml @ 75 mls/hr [id number] IV ; Start 12/05/17 at 16:30 Sodium Chloride (NS Flush) 2 ml UNSCH PRN IV FLUSH FLUSH AFTER USING IV ACCESS ; Start 12/05/17 at 16:30 Sodium Chloride (NS Flush) 2 ml BID IV FLUSH ; Start 12/05/17 at 21:00 Acetaminophen (Tylenol) 650 mg Q4H PRN PO TEMP > 100.4; Start 12/05/17 at 16:30 Ondansetron HCl (Zofran Inj) 4 mg Q6H PRN IVP NAUSEA OR VOMITING; Start at 16:30 Naloxone HCl (Narcan Inj) 0.4 mg UNSCH PRN IV PUSH SEE LABEL COMMENTS; Start at 16:30 Magnesium Hydroxide (Milk Of Magnesia Liq) 30 ml Q12H PRN PO Mild constipation ; Start 12/05/17 at 16:30 Sennosides (Senokot) 17.2 mg Q12H PRN PO Moderate constipation; Start 12/05/17 at 16:30 Bisacodyl (Dulcolax Supp) 10 mg DAILY PRN RECTAL SEVERE CONSITIPATION; Start at 16:30 Aspirin (Aspirin) 325 mg ONCE ONCE PO Last administered on 12/05/17at 16:45; Start 12/05/17 at 16:45; Stop 12/05/17 at 16:46; Status DC Piperacillin Sod/ Tazobactam Sod 50 ml @ 100 mls/hr Q6H IV ; Start 12/05/17 at 18:00; Status UNV Family History Reviewed mother and father with diabetes. No family history of heart disease. Social History Smokes about 1 pack every 2 months since he was 18 years old. Denies any alcohol or illicit drugs Physical Exam Vital Signs Vital Signs Date Time Temp Pulse Resp B/P (MAP) Pulse Ox O2 Delivery O2 Flow Rate FiO2 12/05/17 16:36 68 16 113/74 (87) 94 Room Air 12/05/17 16:31 68 16 121/82 (95) 96 Nasal Cannula 2.00 12/05/17 15:27 75 18 121/81 (94) 94 Nasal Cannula 2.00 12/05/17 14:57 22 99 Nasal Cannula 2.00 12/05/17 14:35 97.9 67 25 122/77 (92) 97 Physical Exam GENERAL: This is a well-nourished, well-developed patient, in no apparent distress. SKIN: No rashes, ecchymoses or lesions. Cool and dry. HEAD: Atraumatic. Normocephalic. No temporal or scalp tenderness. EYES: Pupils equal round and reactive. Extraocular motions intact. No scleral icterus. No injection or drainage. ENT: Nose without bleeding, purulent drainage or septal hematoma. Throat without erythema, tonsillar hypertrophy or exudate. Uvula midline. Airway patent. NECK: Trachea midline. No JVD or lymphadenopathy. Supple, nontender, no meningeal signs. CARDIOVASCULAR: Regular rate and rhythm without murmurs, gallops, or rubs. RESPIRATORY: mild Left lower base wheezing otherwise clear to auscultation. GASTROINTESTINAL: Abdomen soft, non-tender, nondistended. No hepato-splenomegaly , or palpable masses. No guarding. MUSCULOSKELETAL: Extremities without clubbing, cyanosis, or edema. No joint tenderness, effusion, or edema noted. No calf tenderness. Negative Homans sign bilaterally. NEUROLOGICAL: Awake and alert. Cranial nerves II through XII intact. Motor and sensory grossly within normal limits. Five out of 5 muscle strength in all muscle groups. Normal speech. Laboratory Laboratory Tests Test 12/05/17 15:00 12/05/17 15:33 White Blood Count 9.5 Red Blood Count 4.32 Hemoglobin 14.3 Hematocrit 41.3 Mean Corpuscular Volume 95.8 Mean Corpuscular Hemoglobin 33.2 Mean Corpuscular Hemoglobin Concent 34.7 Red Cell Distribution Width 16.3 Platelet Count 277 Mean Platelet Volume 7.6 Neutrophils (%) (Auto) 66.3 Lymphocytes (%) (Auto) 25.1 Monocytes (%) (Auto) 7.6 Eosinophils (%) (Auto) 0.3 Basophils (%) (Auto) 0.7 Neutrophils # (Auto) 6.3 Lymphocytes # (Auto) 2.4 Monocytes # (Auto) 0.7 Eosinophils # (Auto) 0.0 Basophils # (Auto) 0.1 CBC Comment DIFF FINAL Differential Comment Prothrombin Time 11.2 Prothromb Time International Ratio 1.1 Activated Partial Thromboplast Time 31.5 Blood Urea Nitrogen 25 Creatinine 1.37 Random Glucose 129 Calcium Level 8.9 Magnesium Level 1.8 Sodium Level 137 Potassium Level Chloride Level 105 Carbon Dioxide Level 26.7 Anion Gap 5 Estimat Glomerular Filtration Rate 54 Troponin I 0.08 Result Diagram: 12/05/17 1500 12/05/17 1533 Imaging Last Impressions Chest X-Ray 12/05/17 1455 Signed Impressions: Service Date/Time: Tuesday, December 05, 2017 15:08 - CONCLUSION: Left lower lobe airspace disease. MD Sheila Chavez VTE Risk Assessment [facility] VTE Risk Assessment: Mod/High Risk (score >= 2) Caprini Risk Assessment Model Point Value = 1 Point Value = 2 Point Value = 3 Point Value = 5 Age 41-60 Minor surgery BMI > 25 kg/m2 Swollen legs Varicose veins or History of unexplained or recurrent spontaneous Oral contraceptives or hormone replacement Sepsis (< 1 month) Serious lung disease, including pneumonia (< 1 month) Abnormal pulmonary function Acute myocardial infarction Congestive heart failure (< 1 month) History of inflammatory bowel disease Medical patient at bed rest Age 61-74 Arthroscopic surgery Major open surgery (> 45 min) Laparoscopic surgery (> 45 min) Malignancy Confined to bed (> 72 hours) Immobilizing plaster cast Central venous access Age >= 75 History of VTE Family history of VTE Factor V Leiden Prothrombin [id number] Lupus anticoagulant Anticardiolipin antibodies Elevated serum homocysteine Heparin-induced thrombocytopenia Other congenital or acquired thrombophilia Stroke (< 1 month) Elective arthroplasty Hip, pelvis, or leg fracture Acute spinal cord injury (< 1 month) Prophylaxis Regimen Total Risk Factor Score Risk Level Prophylaxis Regimen 0-1 Low Early ambulation 2 Moderate Order ONE of the following: *Sequential Compression Device (SCD) *Heparin 5000 units SQ BID 3-4 Higher Order ONE of the following medications: *Heparin 5000 units SQ TID *Enoxaparin/Lovenox 40 mg SQ daily (WT < 150 kg, CrCl > 30 mL/min) *Enoxaparin/Lovenox 30 mg SQ daily (WT < 150 kg, CrCl > 10-29 mL/min) *Enoxaparin/Lovenox 30 mg SQ BID (WT < 150 kg, CrCl > 30 mL/min) AND/OR *Sequential Compression Device (SCD) 5 or more Highest Order ONE of the following medications: *Heparin 5000 units SQ TID (Preferred with Epidurals) *Enoxaparin/Lovenox 40 mg SQ daily (WT < 150 kg, CrCl > 30 mL/min) *Enoxaparin/Lovenox 30 mg SQ daily (WT < 150 kg, CrCl > 10-29 mL/min) *Enoxaparin/Lovenox 30 mg SQ BID (WT < 150 kg, CrCl > 30 mL/min) AND *Sequential Compression Device (SCD) Assessment and Plan Assessment and Plan This is a 57-year-old male extensive history of coronary disease status post stent placement and ischemic cardiomyopathy status post AICD placement who presented with near syncope and exertional dyspnea Near-syncope -Labs reviewed with troponin mildly elevated 0.08. This has improved since his last admission one month ago. Will get 2 more troponin. Monitor over telemetry. Obtain echo and carotid Doppler. -Continue to monitor clinically. Exertional dyspnea -Chest x-ray shows possible left lower lobe pneumonia which patient did have this on prior admission. We will treat him empirically for community-acquired pneumonia, but this may be more due to cardiac etiology. -We will get an echo and consult Dr. Ruelas since cardiac catheterization was recommended on last admission due to elevated troponin. Elevated troponin -improved. -consult Dr. Ruelas. Chronic kidney disease -Improved compared to last admission. -Continue to avoid nephrotoxins. Trend creatinine. Strict ins and out. Coronary artery disease status post stent placement/cardiomyopathy status post AICD placement/anxiety/type 2 diabetes insulin-dependent -Continue with home medication. DVT prophylaxis -Lovenox Discussed Condition With patient and his nurse Kavya Thomas MD Dec 05, 2017 17:58
[2017-12-05] MEDS: PIPERACIL-TAZO 3.375 GM PREMIX 50 ML IV SCH (18:28)
[2017-12-05] MEDS ORDERED: DEXTROSE 50% IN WATER 50 ML VIAL(D50) IV PUSH PRN (18:30)
[2017-12-05] MEDS ORDERED: GLUCAGON 1 MG/ML VIAL OTHER PRN (18:30)
[2017-12-05] MEDS ORDERED: ALBUTEROL SULFATE 90 MCG/ACT HFA 8 GM INHALER INH PRN (18:30)
[2017-12-05] MEDS ORDERED: INSULIN DETEMIR 100 UNITS/ML VIAL SQ SCH (21:00)
[2017-12-05] MEDS: SODIUM CHLORIDE 0.9% FLUSH 10 ML FLUSH IV FLUSH SCH (21:00)
--- NOTE | 2017-12-05 21:56 | RADRPT ---
EXAM DATE/TIME: 12/05/2017 20:40 [facility] COMPARISON: No previous studies available for comparison. INDICATIONS : Syncope. MEDICAL HISTORY : Myocardial infarction. Hypertension. Hypercholesterolemia. Renal disease. Diabetes. COPD. Numbess in finger tips and toes. Coronary stent. GERD. Congestive heart failure. SURGICAL HISTORY : Appendectomy. Cardiac surgery. ENCOUNTER: Initial ACUITY: 1 day PAIN SCORE: 0/10 LOCATION: Bilateral neck PEAK SYSTOLIC VELOCITIES (cm/sec): ICA/CCA RATIO: Right: 1.9 Left: 1.0 ICA: Right: 102 Left: 65 CCA: Right: 55 Left: 65 ECA: Right: 82 Left: 45 VERTEBRAL: Right: 37 antegrade Left: 67 antegrade Elevated flow velocities and ICA/CCA ratios have been found to correlate with increased degrees of vessel stenosis, calculated as percentage of diameter relative to a normal segment of distal ICA/CCA FINDINGS: RIGHT CAROTID: No significant stenosis is visualized. The waveforms are within normal limits. LEFT CAROTID: No significant stenosis is visualized. The waveforms are within normal limits. VERTEBRAL ARTERIES: Antegrade flow is seen in both vertebral arteries. MISCELLANEOUS: None. CONCLUSION: 1. Mild plaque in the carotid arteries bilaterally. No hemodynamically significant stenosis identifie d. Vertebral artery flow antegrade. Pranav Powell MD on December 05, 2017 at 21:53 Board Certified Radiologist. This report was verified electronically.
[2017-12-05] MEDS: METOPROLOL TARTRATE 50 MG TAB PO SCH (22:31)
[2017-12-05] MEDS: RAMIPRIL 2.5 MG CAP PO SCH (22:31)
[2017-12-05] MEDS: CLOPIDOGREL 75 MG TAB PO SCH (22:31)
[2017-12-05] MEDS: AMIODARONE 200 MG TAB PO SCH (22:31)
[2017-12-05] MEDS: ATORVASTATIN 20 MG TAB PO SCH (22:31)
[2017-12-05] MEDS: SPIRONOLACTONE 25 MG TAB PO SCH (22:32)
--- NOTE | 2017-12-05 22:44 | HHI.PR ---
Subjective Remarks NOT SEEN Objective Vitals Vital Signs Date Time Temp Pulse Resp B/P (MAP) Pulse Ox O2 Delivery O2 Flow Rate FiO2 12/05/17 20:20 97.5 79 18 116/78 (91) 92 12/05/17 18:48 98.4 77 18 143/99 (114) 97 12/05/17 16:36 68 16 113/74 (87) 94 Room Air 12/05/17 16:31 68 16 121/82 (95) 96 Nasal Cannula 2.00 12/05/17 15:27 75 18 121/81 (94) 94 Nasal Cannula 2.00 12/05/17 14:57 22 99 Nasal Cannula 2.00 12/05/17 14:35 97.9 67 25 122/77 (92) 97 Result Diagram: 12/05/17 1500 12/05/17 1533 Imaging Last Impressions Chest X-Ray 12/05/17 1455 Signed Impressions: Service Date/Time: Tuesday, December 05, 2017 15:08 - CONCLUSION: Left lower lobe airspace disease. Gualberto Cohen MD Carotid Artery Ultrasound 12/05/17 0000 Signed Impressions: Service Date/Time: Tuesday, December 05, 2017 20:40 - CONCLUSION: 1. Mild plaque in the carotid arteries bilaterally. No hemodynamically significant stenosis identified. Vertebral artery flow antegrade. Pranav Powell MD Objective Remarks GENERAL: This is a well-nourished, well-developed patient, in no apparent distress. SKIN: No rashes, ecchymoses or lesions. Cool and dry. HEAD: Atraumatic. Normocephalic. No temporal or scalp tenderness. EYES: Pupils equal round and reactive. Extraocular motions intact. No scleral icterus. No injection or drainage. ENT: Nose without bleeding, purulent drainage or septal hematoma. Throat without erythema, tonsillar hypertrophy or exudate. Uvula midline. Airway patent. NECK: Trachea midline. No JVD or lymphadenopathy. Supple, nontender, no meningeal signs. CARDIOVASCULAR: Regular rate and rhythm without murmurs, gallops, or rubs. RESPIRATORY: mild Left lower base wheezing otherwise clear to auscultation. GASTROINTESTINAL: Abdomen soft, non-tender, nondistended. No guarding. MUSCULOSKELETAL: Extremities without clubbing, cyanosis, or edema. No joint tenderness, effusion, or edema noted. No calf tenderness. Negative Homans sign bilaterally. NEUROLOGICAL: Awake and alert. Cranial nerves II through XII intact. Motor and sensory grossly within normal limits. Five out of 5 muscle strength in all muscle groups. Normal speech. A/P Problem List: (1) Near syncope ICD Code: R55 - Syncope and collapse Status: Acute Assessment and Plan This is a 57-year-old male extensive history of coronary disease status post stent placement and ischemic cardiomyopathy status post AICD placement who presented with near syncope and exertional dyspnea Near-syncope -Labs reviewed with troponin mildly elevated 0.08. This has improved since his last admission one month ago. Will get 2 more troponin. Monitor over telemetry. Obtain echo and carotid Doppler. -Continue to monitor clinically. Exertional dyspnea -Chest x-ray shows possible left lower lobe pneumonia which patient did have this on prior admission. We will treat him empirically for community-acquired pneumonia, but this may be more due to cardiac etiology. -We will get an echo and consult Dr. Ruelas since cardiac catheterization was recommended on last admission due to elevated troponin. Elevated troponin -improved. -consult Dr. Ruelas. Chronic kidney disease -Improved compared to last admission. -Continue to avoid nephrotoxins. Trend creatinine. Strict ins and out. Coronary artery disease status post stent placement/cardiomyopathy status post AICD placement/anxiety/type 2 diabetes insulin-dependent -Continue with home medication. DVT prophylaxis -Oscar Davis MD Dec 05, 2017 22:44
[2017-12-05] MEDS: ALPRAZolam 0.5 MG TAB PO PRN (22:50)
[2017-12-05] MEDS: INSULIN ASPART SUPPLEMENTAL SCALE SQ SCH (22:51)
[2017-12-06] VITALS (8 sets, daily range): BP systolic 113–132; BP diastolic 75–87; PULSE 65–92; RESP 13–20; TEMP 97.5–97.6; O2SAT 89–98
[2017-12-06] MEDS: PIPERACIL-TAZO 3.375 GM PREMIX 50 ML IV SCH ×4 (00:17→19:30)
[2017-12-06 07:06] LABS: HEMATOCRIT 40.9 % (39.0-51.0); HEMOGLOBIN 14.2 GM/DL (13.0-17.0); MEAN CELL VOLUME 95.7 FL (80.0-100.0); MEAN CORPUSCULAR HEMOGLOBIN 33.3 PG (27.0-34.0); MEAN CORPUSCULAR HGB CONC 34.8 % (32.0-36.0); MEAN PLATELET VOLUME 7.7 FL (7.0-11.0); PLATELET COUNT 242 TH/MM3 (150-450); RED BLOOD COUNT 4.27 MIL/MM3 (4.50-5.90); RED CELL DISTRIBUTION WIDTH 16.1 % (11.6-17.2); WHITE BLOOD COUNT 8.4 TH/MM3 (4.0-11.0)
[2017-12-06] MEDS ORDERED: INSULIN DETEMIR 100 UNITS/ML VIAL SQ ONE (08:40)
[2017-12-06] MEDS: INSULIN ASPART SUPPLEMENTAL SCALE SQ SCH ×4 (09:41→21:00)
[2017-12-06] MEDS: METOPROLOL TARTRATE 50 MG TAB PO SCH ×2 (09:47→22:53)
[2017-12-06] MEDS: POTASSIUM CHLORIDE 20 MEQ CONTROLLED RELEASE TAB PO SCH (09:47)
[2017-12-06] MEDS: ASPIRIN EC 81 MG TABEC PO SCH (09:47)
[2017-12-06] MEDS: FUROSEMIDE 40 MG TAB PO SCH (09:48)
[2017-12-06] MEDS ORDERED: RESP: ALBUTEROL 2.5 MG/IPRATROPIUM 0.5 MG NEB (PRN) NEB (10:15)
--- NOTE | 2017-12-06 12:20 | MB ---
cc: Esmer Tran MD DATE OF CONSULT: REASON FOR CONSULTATION: Nonsustained ventricular tachycardia and mildly positive troponin, history of coronary artery disease, and severe ischemic cardiomyopathy. HISTORY OF PRESENT ILLNESS: This is a 57-year-old male who is well known to me, has a past medical history of coronary artery disease, status post stenting and old myocardial infarction, severe ischemic cardiomyopathy, atrial fibrillation in the past, type 2 diabetes mellitus, status post AICD placement. Patient presented to [facility] with a complaint of feeling lightheaded and dizzy and exertional shortness of breath, which has been progressively worsening. He was taken by his friend to the emergency room. The initial workup included 3 sets of cardiac enzymes, which were positive with a maximum troponin of 0.08. Twelve-lead EKG showed no acute ST changes and left bundle branch block. Chest x-ray was obtained and showed new infiltrates suggestive of pneumonia in the left lower lobe. The patient was started on antibiotics. Before I saw the patient, had a short run of 6 beats of ventricular tachycardia. Currently, the patient is chest pain free. Actually, he never had chest pain throughout; however, he had more shortness of breath with exertion. ALLERGIES: THE PATIENT IS ALLERGIC TO MORPHINE. PAST MEDICAL HISTORY: As stated above. He has the history of coronary artery disease, status post stenting, severe ischemic cardiomyopathy, status post [facility] [facility] AICD, chronic kidney disease, history of congestive heart failure and myocardial infarction in the past, hypertension, hyperlipidemia, chronic obstructive pulmonary disease, history of atrial fibrillation, and type 2 diabetes mellitus. FAMILY HISTORY: Noncontributory. REVIEW OF SYSTEMS: HEENT: Positive for lightheadedness and dizziness. Negative for syncope. CARDIOVASCULAR: As mentioned above. PULMONARY: History of COPD. GASTROINTESTINAL: No history of GERD or GI bleed. GENITOURINARY: History of chronic kidney disease. The remainder of review of systems is within normal limits. PHYSICAL EXAMINATION: Showed blood pressure of 120/70 with a heart rate of 65, respiratory rate of 16. The patient is afebrile. NECK: Supple, no jugular venous distention. CHEST: Clear to auscultation and percussion. HEART: S1, normal intensity regular rate and rhythm. No S3 appreciated. ABDOMEN: Benign. EXTREMITIES: No edema, clubbing or cyanosis. IMPRESSION: 1. Left lower lobe pneumonia. 2. Nonsustained ventricular tachycardia. 3. History of severe ischemic cardiomyopathy, status post [facility] AICD placement. 4. History of coronary artery disease, status post stenting and myocardial infarction in the past. 5. History of atrial fibrillation in the past. 6. History of chronic obstructive pulmonary disease. 7. History of type 2 diabetes mellitus. 8. History of hypertension. RECOMMENDATIONS: The patient is stable from the cardiovascular standpoint at this point. Recommendation: I will interrogate the [facility] AICD. I am not sure if the patient has non-ST elevation myocardial infarction. His positive troponin could be related to chronic kidney disease, especially the patient has been chest pain free and the shortness of breath is explained by his new pneumonia. I agree with the current management for pneumonia per the hospitalist. I will continue to follow him and provide further recommendation as needed. MD JAZMYNE Clifford/MAXWELL , 11:39 AM , 12:19 PM
--- NOTE | 2017-12-06 12:40 | HHI.PR ---
Subjective Remarks Follow-up pneumonia. States he did not get any better since he was discharged for pneumonia. No fever or chills. Still has shortness of breath no chest pain discussed with cardiology and nursing Objective Vitals Vital Signs Date Time Temp Pulse Resp B/P (MAP) Pulse Ox O2 Delivery O2 Flow Rate FiO2 12/06/17 07:28 97.6 65 16 120/79 (93) 97 12/06/17 04:06 97.5 73 13 132/78 (96) 89 12/06/17 04:00 74 12/06/17 00:00 84 12/05/17 23:59 97.2 80 17 132/84 (100) 90 12/05/17 20:35 80 12/05/17 20:20 97.5 79 18 116/78 (91) 92 12/05/17 18:48 98.4 77 18 143/99 (114) 97 12/05/17 16:36 68 16 113/74 (87) 94 Room Air 12/05/17 16:31 68 16 121/82 (95) 96 Nasal Cannula 2.00 12/05/17 15:27 75 18 121/81 (94) 94 Nasal Cannula 2.00 12/05/17 14:57 22 99 Nasal Cannula 2.00 12/05/17 14:35 97.9 67 25 122/77 (92) 97 Result Diagram: 12/06/17 0603 12/05/17 1533 Imaging Last Impressions Chest X-Ray 12/05/17 1455 Signed Impressions: Service Date/Time: Tuesday, December 05, 2017 15:08 - CONCLUSION: Left lower lobe airspace disease. Gualberto Cohen MD Carotid Artery Ultrasound 12/05/17 0000 Signed Impressions: Service Date/Time: Tuesday, December 05, 2017 20:40 - CONCLUSION: 1. Mild plaque in the carotid arteries bilaterally. No hemodynamically significant stenosis identified. Vertebral artery flow antegrade. Pranav Powell MD Objective Remarks GENERAL: This is a well-nourished, well-developed patient, in no apparent distress. SKIN: No rashes, ecchymoses or lesions. Cool and dry. CARDIOVASCULAR: Regular rate and rhythm without murmurs, gallops, or rubs. RESPIRATORY: Equal breath sounds clear to auscultation. GASTROINTESTINAL: Abdomen soft, non-tender, nondistended. No guarding. MUSCULOSKELETAL: Extremities without clubbing, cyanosis, or edema. No joint tenderness, effusion, or edema noted. No calf tenderness. Negative Homans sign bilaterally. NEUROLOGICAL: Awake and alert. Cranial nerves II through XII intact. Motor and sensory grossly within normal limits. Five out of 5 muscle strength in all muscle groups. Normal speech. Procedures none A/P Problem List: (1) Near syncope ICD Code: R55 - Syncope and collapse Status: Acute Assessment and Plan This is a 57-year-old male extensive history of coronary disease status post stent placement and ischemic cardiomyopathy status post AICD placement who presented with near syncope and exertional dyspnea Near-syncope. NSVT. History of cardiomyopathy AICD interrogation negative. Monitor on telemetry Hospital-acquired pneumonia. Continue Zosyn. Check sputum and urinary Legionella and pneumococcal antigen. Elevated troponin. Possible non-STEMI history of coronary artery disease status post stent placement. No chest pain. Continue aspirin, statin and beta- ivonne. Per cardiology Chronic kidney disease stage III. Improved compared to last admission. Anxiety/type 2 diabetes insulin-dependent. Continue outpatient medications as appropriate DVT prophylaxis. Lovenox Discharge Planning Possible discharge in 1-2 days per cardiology Oscar Vera MD Dec 06, 2017 12:40
[2017-12-06 13:06] LABS: BICARBONATE 27.2 MEQ/L (21.0-32.0); CALCIUM 9.4 MG/DL (8.5-10.1); CREATININE 1.41 MG/DL (0.60-1.30); MAGNESIUM 1.8 MG/DL (1.5-2.5)
[2017-12-06 13:09] LABS: TROPONIN I 0.08 NG/ML (0.02-0.05)
[2017-12-06] MEDS: SODIUM CHLORIDE 0.9% FLUSH 10 ML FLUSH IV FLUSH SCH ×2 (13:27→22:49)
[2017-12-06] MEDS: guaiFENesin E.R. 600 MG TAB PO SCH ×2 (13:27→22:54)
[2017-12-06] MEDS: RESP: ALBUTEROL 2.5 MG/IPRATROPIUM 0.5 MG NEB (SCH) NEB ×2 (16:22→20:11)
[2017-12-06] MEDS ORDERED: INSULIN DETEMIR 100 UNITS/ML VIAL SQ SCH ×2 (21:00)
[2017-12-06] MEDS: BUDESONIDE-FORMOTEROL 160/4.5 MCG INHALER INH SCH (22:48)
[2017-12-06] MEDS: AMIODARONE 200 MG TAB PO SCH (22:50)
[2017-12-06] MEDS: RAMIPRIL 2.5 MG CAP PO SCH (22:51)
[2017-12-06] MEDS: CLOPIDOGREL 75 MG TAB PO SCH (22:52)
[2017-12-06] MEDS: SPIRONOLACTONE 25 MG TAB PO SCH (22:52)
[2017-12-06] MEDS: ATORVASTATIN 20 MG TAB PO SCH (22:52)
[2017-12-06] MEDS: ALPRAZolam 0.5 MG TAB PO PRN (22:53)
[2017-12-07] VITALS (9 sets, daily range): BP systolic 110–129; BP diastolic 70–87; PULSE 78–90; RESP 16–20; TEMP 97.9–98.1; O2SAT 94–97
[2017-12-07] MEDS: PIPERACIL-TAZO 3.375 GM PREMIX 50 ML IV SCH ×2 (00:58→04:44)
[2017-12-07] MEDS ORDERED: LORazepam 1 MG TAB PO ONE (04:45)
[2017-12-07 05:06] LABS: TROPONIN I 0.08 NG/ML (0.02-0.05)
[2017-12-07] MEDS: RESP: ALBUTEROL 2.5 MG/IPRATROPIUM 0.5 MG NEB (SCH) NEB ×2 (07:38→14:00)
--- NOTE | 2017-12-07 09:00 | HHI.PR ---
Subjective Remarks pt denies chest pain Objective Vital Signs Date Time Temp Pulse Resp B/P (MAP) Pulse Ox O2 Delivery O2 Flow Rate FiO2 12/07/17 07:39 97 Nasal Cannula 2.00 12/07/17 05:40 80 16 125/82 (96) 97 Manual Cuff/Auscultation 12/07/17 04:16 84 12/07/17 04:11 97.9 83 20 110/70 (83) 97 12/07/17 00:49 98.0 88 20 124/74 (91) 94 12/07/17 00:06 90 12/06/17 22:32 91 16 124/85 (98) 94 12/06/17 20:13 97.5 92 20 113/75 (88) 98 12/06/17 20:07 84 12/06/17 13:14 97.5 72 18 120/87 (98) 96 I/O 12/06/17 12/06/17 12/06/17 12/07/17 12/07/17 12/07/17 07:00 15:00 23:00 07:00 15:00 23:00 Intake Total 500 ml Balance 500 ml Intake Oral 500 ml # Voids 2 VSS CHEST: CTA HEART: S1, S2, RR ABD: ST, NT Ext: No edema Result Diagram: 12/06/17 0603 12/06/17 1214 Assessment and Plan Assessment and Plan AICD check showed one episode at home of non sustained VT, Trops are not increasing, it is likely due to CKD, He remains chest pain free. I discussed with Dr Vera his condition. he is stable cardiacwise to go home after pneumonia is adequately treated. I will postpone LT HC until after discharge since pt does not want LT HC here. thank you Esmer Tran MD Dec 07, 2017 09:00
[2017-12-07] MEDS: METOPROLOL TARTRATE 50 MG TAB PO SCH (09:26)
[2017-12-07] MEDS: ASPIRIN EC 81 MG TABEC PO SCH (09:26)
[2017-12-07] MEDS: FUROSEMIDE 40 MG TAB PO SCH (09:26)
[2017-12-07] MEDS: guaiFENesin E.R. 600 MG TAB PO SCH (09:26)
[2017-12-07] MEDS: POTASSIUM CHLORIDE 20 MEQ CONTROLLED RELEASE TAB PO SCH (09:26)
[2017-12-07] MEDS: BUDESONIDE-FORMOTEROL 160/4.5 MCG INHALER INH SCH (09:27)
[2017-12-07] MEDS: INSULIN ASPART SUPPLEMENTAL SCALE SQ SCH (09:28)
[2017-12-07] MEDS: SODIUM CHLORIDE 0.9% FLUSH 10 ML FLUSH IV FLUSH SCH (09:29)
[2017-12-07] MEDS ORDERED: guaiFENesin ER PO (09:34)
[2017-12-07] MEDS ORDERED: Budeson-Formot 160-4.5 Mcg Inh INH (09:34)
[2017-12-07] MEDS ORDERED: AMOX875T2 PO (09:38)
[2017-12-07] MEDS ORDERED: SYMB160A INH (09:40)
[2017-12-07] MEDS ORDERED: AMOXICILLIN/CLAVULANATE K 875 MG TAB PO SCH (11:00)
--- NOTE | 2017-12-07 13:56 | HHI.PR ---
Subjective Remarks Follow-up pneumonia. He is doing better. Improving shortness of breath. Discussed with cardiology, patient prefers to have cardiac catheterization at [facility] Objective Vitals Vital Signs Date Time Temp Pulse Resp B/P (MAP) Pulse Ox O2 Delivery O2 Flow Rate FiO2 12/07/17 07:39 97 Nasal Cannula 2.00 12/07/17 05:40 80 16 125/82 (96) 97 Manual Cuff/Auscultation 12/07/17 04:16 84 12/07/17 04:11 97.9 83 20 110/70 (83) 97 12/07/17 00:49 98.0 88 20 124/74 (91) 94 12/07/17 00:06 90 12/06/17 22:32 91 16 124/85 (98) 94 12/06/17 20:13 97.5 92 20 113/75 (88) 98 12/06/17 20:07 84 I/O 12/06/17 12/06/17 12/06/17 12/07/17 12/07/17 12/07/17 07:00 15:00 23:00 07:00 15:00 23:00 Intake Total 500 ml Balance 500 ml Intake Oral 500 ml # Voids 2 Result Diagram: 12/06/17 0603 12/06/17 1214 Imaging Last Impressions Chest X-Ray 12/05/17 1455 Signed Impressions: Service Date/Time: Tuesday, December 05, 2017 15:08 - CONCLUSION: Left lower lobe airspace disease. Gualberto Cohen MD Carotid Artery Ultrasound 12/05/17 0000 Signed Impressions: Service Date/Time: Tuesday, December 05, 2017 20:40 - CONCLUSION: 1. Mild plaque in the carotid arteries bilaterally. No hemodynamically significant stenosis identified. Vertebral artery flow antegrade. Pranav Powell MD Objective Remarks GENERAL: This is a well-nourished, well-developed patient, in no apparent distress. SKIN: No rashes, ecchymoses or lesions. Cool and dry. CARDIOVASCULAR: Regular rate and rhythm without murmurs, gallops, or rubs. RESPIRATORY: Equal breath sounds clear to auscultation. GASTROINTESTINAL: Abdomen soft, non-tender, nondistended. No guarding. MUSCULOSKELETAL: Extremities without clubbing, cyanosis, or edema. No joint tenderness, effusion, or edema noted. No calf tenderness. Negative Homans sign bilaterally. NEUROLOGICAL: Awake and alert. Cranial nerves II through XII intact. Motor and sensory grossly within normal limits. Five out of 5 muscle strength in all muscle groups. Normal speech. Procedures none A/P Problem List: (1) Near syncope ICD Code: R55 - Syncope and collapse Status: Acute Assessment and Plan This is a 57-year-old male extensive history of coronary disease status post stent placement and ischemic cardiomyopathy status post AICD placement who presented with near syncope and exertional dyspnea Near-syncope. NSVT. History of cardiomyopathy with AICD s/p interrogation. Monitor on telemetry Hospital-acquired pneumonia. Switch to Augmentin status post Zosyn. Ordered sputum and urinary Legionella and pneumococcal antigen. Elevated troponin. Possible non-STEMI history of coronary artery disease status post stent placement. No chest pain. Continue aspirin, statin and beta- ivonne. Per cardiology, troponin bump likely from chronic kidney disease. Patient prefers to have cardiac catheterization at [facility] Chronic kidney disease stage III. Improved compared to last admission. Anxiety/type 2 diabetes insulin-dependent. Continue outpatient medications as appropriate DVT prophylaxis. Lovenox Discharge Planning Discharge patient to home Condition on discharge: Improved Regular Diet as tolerated Ad [employer] activity no driving Rx written: Augmentin, Symbicort and Mucinex Follow-up with primary care physician and cardiology Oscar Vera MD Dec 07, 2017 13:56
--- NOTE | 2017-12-08 15:07 | EKG ---
Date Performed: 12/07/2017 Time Performed: 04:48:36 PTAGE: 57 years EKG: Sinus rhythm WITH FIRST DEGREE AV BLOCK INCOMPLETE LEFT BUNDLE BRANCH BLOCK POOR R WAVE PROGRESSION LEFT AXIS DEV IATION PREVIOUS TRACING : 12/02/2017 23.38 DOCTOR: Elvis Quintanilla Interpretating Date/Time 12/08/2017 15:05:42
--- NOTE | 2017-12-09 21:53 | EKG ---
Date Performed: 12/05/2017 Time Performed: 14:25:56 PTAGE: 57 years EKG: Sinus rhythm WITH FIRST DEGREE AV BLOCK LEFT AXIS DEVIATION LEFT BUNDLE BRANCH BLOCK ABNORMAL ECG NO PREVIOUS TRACING DOCTOR: Julio Dixon Interpretating Date/Time 12/09/2017 21:52:07
== END 2017-12-07 16:17 | disposition home or self-care (01) ==
LOC: NEPC 14:20 → NEDA 16:46 → NEPGCP 17:55
PROVIDERS: ADMIT Internal Medicine; ATTEND Internal Medicine
DX: R07.9 Chest pain, unspecified (principal); I13.0 Hypertensive heart and chronic kidney disease with heart failure and stage 1 through stage 4 chronic kidney disease, or unspecified chronic kidney disease; I47.2 Ventricular tachycardia; I50.22 Chronic systolic (congestive) heart failure; N18.3 Chronic kidney disease, stage 3 (moderate); N17.9 Acute kidney failure, unspecified; J44.0 Chronic obstructive pulmonary disease with (acute) lower respiratory infection; I25.5 Ischemic cardiomyopathy; I25.10 Atherosclerotic heart disease of native coronary artery without angina pectoris; I48.91 Unspecified atrial fibrillation; I25.2 Old myocardial infarction; I65.23 Occlusion and stenosis of bilateral carotid arteries; E78.5 Hyperlipidemia, unspecified; E11.22 Type 2 diabetes mellitus with diabetic chronic kidney disease; F41.9 Anxiety disorder, unspecified; G47.33 Obstructive sleep apnea (adult) (pediatric); K21.9 Gastro-esophageal reflux disease without esophagitis; Z72.0 Tobacco use; Z79.4 Long term (current) use of insulin; Z95.5 Presence of coronary angioplasty implant and graft; Z95.810 Presence of automatic (implantable) cardiac defibrillator
CPT/HCPCS: 71045; 80048; 82550; 82948; 83735; 84484; 85025; 85027; 85610; 85730; 93005; 93880; 94640; 94664; 96365; 96366; 96372; 99285; G0378; J1815; J2543